=== PATIENT | female | born 1970 | race Caucasian/White ===

== ENCOUNTER 2016-04-10 23:45 | Emergency (ER) | payer OTHER ==
[2016-04-11 00:28] VITALS: BP 136/72
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
--- NOTE | 2016-04-11 04:03 | ER Document Report ---
ED General - General Chief Complaint: Allergic Reaction Stated Complaint: POSSIBLE ALLERGIC REACTION Time seen by provider: 04:00 Mode of Arrival: Ambulatory Information source: Patient Notes: 45-year-old female presents to ED for possible allergic reaction to Decadron she states she had a dose of Rocephin Pepcid and Decadron as [facility] around 2 PM yesterday afternoon and the day before states she told the doctor that she is allergic to Decadron and they stated that she needed to have it and noted that the Rocephin that she needs for the possible infection to her [place] pouch. She states she's had a splitting headache since she got the Decadron the first day and she told the doctor yesterday and they told her she still needed the medicine. She has an ostomy bag over top of the indwelling catheter went into [place] pouch. TRAVEL OUTSIDE OF THE [place] IN LAST 30 DAYS: No - HPI Onset: Other - 2 days Onset/Duration: Gradual, Worse Quality of pain: Sharp, Throbbing Severity: Moderate Pain Level: 3 Associated symptoms: Headache, Other - Lightheaded when she stands up Exacerbated by: Standing Relieved by: Denies Similar symptoms previously: Yes Recently seen / treated by doctor: Yes - Related Data Allergies/Adverse Reactions: amoxicillin [Amoxicillin] Allergy (Severe, Verified 04/11/16 00:29) Hives cephalexin monohydrate [From Keflex] Allergy (Severe, Verified 04/11/16 00:29) Hives ciprofloxacin [From Cipro] Allergy (Severe, Verified 04/11/16 00:29) Hives clarithromycin [From Biaxin] Allergy (Severe, Verified 04/11/16 00:29) Hives diphenhydramine HCl [From Benadryl] Allergy (Severe, Verified 04/11/16 00:29) Hives doxycycline [Doxycycline] Allergy (Severe, Verified 04/11/16 00:29) Hives gentamicin [Gentamicin] Allergy (Severe, Verified 04/11/16 00:29) Hives gluten [Gluten] Allergy (Severe, Verified 04/11/16 00:29) Diarrhea hydrocodone [Hydrocodone] Allergy (Severe, Verified 04/11/16 00:29) Hives ibuprofen Allergy (Severe, Verified 04/11/16 00:29) Hives iodine [Iodine] Allergy (Severe, Verified 04/11/16 00:29) Anaphylaxis latex [Latex] Allergy (Severe, Verified 04/11/16 00:29) Anaphylaxis levofloxacin [From Levaquin] Allergy (Severe, Verified 04/11/16 00:29) Hives meperidine HCl [From Demerol] Allergy (Severe, Verified 04/11/16 00:29) Hives methylprednisolone sodium succinate [From Solu-Medrol (PF)] Allergy (Severe, Verified 04/11/16 00:29) Hives morphine [Morphine] Allergy (Severe, Verified 04/11/16 00:29) Hives nitrofurantoin [From Macrobid] Allergy (Severe, Verified 04/11/16 00:29) Hives ondansetron HCl [From Zofran] Allergy (Severe, Verified 04/11/16 00:29) Anaphylaxis Opioids-Meperidine and Related [Opioids-Meperidine & Related] Allergy (Severe, Verified 04/11/16 00:29) Hives oxycodone [Oxycodone] Allergy (Severe, Verified 04/11/16 00:29) Hives promethazine HCl [From Phenergan] Allergy (Severe, Verified 04/11/16 00:29) paralysis Shellfish * [Shellfish] Allergy (Severe, Verified 04/11/16 00:29) Anaphylaxis Sulfa (Sulfonamide Antibiotics) Allergy (Severe, Verified 04/11/16 00:29) Anaphylaxis tetracycline [Tetracycline] Allergy (Severe, Verified 04/11/16 00:29) Hives vancomycin [Vancomycin] Allergy (Severe, Verified 04/11/16 00:29) Hives ampicillin [Ampicillin] Adverse Reaction (Severe, Verified 04/11/16 00:29) Hives hydromorphone HCl [From Dilaudid] Adverse Reaction (Severe, Verified 04/11/16 00 :29) Hallucinations Cats Allergy (Severe, Uncoded 01/29/16 14:11) Anaphylaxis Dogs Allergy (Severe, Uncoded 01/29/16 14:11) Hives Past Medical History - General Information source: Patient - Social History Smoking Status: Never Smoker Cigarette use (# per day): No Chew tobacco use (# tins/day): No Smoking Education Provided: No Frequency of alcohol use: None Drug Abuse: None Occupation: none Lives with: Alone Family History: CVA, Malignancy, Thyroid Disfunction Patient has suicidal ideation: No Patient has homicidal ideation: No - Medical History Medical History: Other - Celiac's disease, Marfan's syndrome, ITP short gut syndrome, vitamin B-12 deficiency, vitamin D deficiency, iron deficiency anemia , enlarged liver, enlarged spleen, chiari malformation type 2 - Past Medical History Cardiac Medical History: Reports: None Pulmonary Medical History: Reports: Hx Asthma, Hx Bronchitis, Hx Pneumonia EENT Medical History: Reports: None Neurological Medical History: Reports: None Endocrine Medical History: Reports: None Renal/ Medical History: Reports: Hx Kidney Stones, Hx Ovarian Cysts Malignancy Medical History: Reports: None GI Medical History: Reports: Hx Ulcer, Other - Multiple incisional hernias, around the stoma Musculoskeltal Medical History: Reports None Skin Medical History: Reports None Psychiatric Medical History: Reports: None Traumatic Medical History: Reports: None Infectious Medical History: Reports: None Past Surgical History: Reports: Hx Abdominal Surgery - Hernia repair, Abd reconstruction with mesh, Hx Appendectomy, Hx Cholecystectomy, Hx Genitourinary Surgery - Ureteral stent and repair, Hx Herniorrhaphy - Gen. hernia repairs with mesh, Hx Urinary Tract Surgery - Pabladder removal, [place] pouch, suprapubic catheter for her [place] pouch - Immunizations Immunizations up to date: Yes Hx Diphtheria, Pertussis, Tetanus Vaccination: Yes Hx Pneumococcal Vaccination: 10/29/14 Review of Systems - Review of Systems Constitutional: No symptoms reported EENT: No symptoms reported Cardiovascular: Other - Bradycardia Respiratory: No symptoms reported Gastrointestinal: No symptoms reported Genitourinary: No symptoms reported Female Genitourinary: No symptoms reported Musculoskeletal: No symptoms reported Skin: No symptoms reported Hematologic/Lymphatic: No symptoms reported Neurological/Psychological: Headaches -: Yes All other systems reviewed and negative Physical Exam - Vital signs Vitals: Temp Pulse Resp BP Pulse Ox 97.8 F 58 L 20 136/72 H 98 04/11/16 00:24 04/11/16 00:24 04/11/16 00:24 04/11/16 00:24 04/11/16 00:24 Interpretation: Normal - General General appearance: Appears well, Alert - HEENT Head: Normocephalic, Atraumatic Eyes: Normal Pupils: PERRL Ears: Normal External canal: Normal Tympanic membrane: Normal Sinus: Normal Nasal: Normal Mouth/Lips: Normal Mucous membranes: Normal Pharynx: Normal Neck: Normal - Respiratory Respiratory status: No respiratory distress Chest status: Nontender Breath sounds: Normal Chest palpation: Normal - Cardiovascular Rhythm: Regular Heart sounds: Normal auscultation Murmur: No - Abdominal Inspection: Normal Distension: No distension Bowel sounds: Normal Tenderness: Nontender Organomegaly: No organomegaly - Back Back: Normal, Nontender - Extremities General upper extremity: Normal inspection, Nontender, Normal color, Normal ROM , Normal temperature General lower extremity: Normal inspection, Nontender, Normal color, Normal ROM , Normal temperature, Normal weight bearing. 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 Denny earlier for this patient for her headache and low pulse. He requested a CT head and EKG be done which were completed and reviewed by Dr. Denny and I. reviewed these with the patient and when preparing to discharge the patient she stated she is breast get a nurse visit in a couple hours for Rocephin Pepcid and Decadron from Dr. Tadeo. She states she wanted to get this visit now instead of having to come back later this morning. I consulted Dr. Tadeo he stated yes she would like her to have a gram of Rocephin and 20 mg of Pepcid IV. She states she is not supposed to get Decadron today. Dr. Quiñones states she no she's allergic to the Rocephin but that she needs it for the infection in her abdomen to please give it to her. 1 g of IV Rocephin and 20 mg of Pepcid ordered as requested. - Vital Signs Vital signs: Temp Pulse Resp BP Pulse Ox 97.8 F 58 L 20 136/72 H 98 04/11/16 00:24 04/11/16 00:24 04/11/16 00:24 04/11/16 00:24 04/11/16 00:24 - Diagnostic Test Radiology reviewed: Image reviewed, Reports reviewed Discharge - Discharge Clinical Impression: Headache Qualifiers: Headache type: unspecified Headache chronicity pattern: unspecified pattern Intractability: not intractable Qualified Code(s): R51 - Headache Condition: Stable Disposition: HOME, SELF-CARE Additional Instructions: HEADACHE: The physician does not feel that the headache you are experiencing has a serious underlying cause. Most headaches are due to emotional stress, with resultant muscle tension (tension headache). Occasionally, headaches are secondary to changes in the blood vessels of the scalp (vascular headache and migraine headache). Sometimes, a headache is the first symptom of another developing illness, such as a viral infection. You have no evidence of stroke, bleeding, meningitis, or other serious cause of your headache. The treatment of headaches varies with the severity and cause of the pain. Not all headaches need pain shots. In fact, there is evidence that using narcotics for headaches may make them worse in the long run. The physician will determine the therapy that's in your best interest. If you develop a fever, if the headache is different from any you've previously experienced, or if the headache progressively worsens, then call your physician at once or go to the emergency room. Rocephin You have been given an injection of an antibiotic called Rocephin ( ceftriaxone). Sometimes the injection must be combined with antibiotic pills. For some infections, such as an uncomplicated ear infection, Rocephin provides all the antibiotic that's needed. The antibiotic will be in your body for about two days. For serious infections, we usually repeat doses of Rocephin daily. Side effects are very unusual following a shot. Women may develop vaginal yeast infections, and babies can get yeast (thrush) in the mouth following the use of antibiotics. Contact your physician if you have symptoms with this medication. Allergy to this antibiotic can result in hives, wheezing, faintness, or itching. If symptoms of allergy occur, call the doctor at once. Acid-Suppressing Medication You have a prescription for medicine which reduces the stomach's secretion of acid. Examples include Zantac, Tagament, and Pepcid. These drugs are often used to allow healing of ulcers or esophagitis. They may be needed to prevent recurrence of ulcers in some patients, or to prevent damage from acid reflux in the esophagus. Take all medication as prescribed, even after the pain is gone. Regular antacids may be added as needed if you have symptoms while taking this medicine. These medications sometimes are prescribed for allergic reactions because they have anti-histaminic effects and relieve the rash and itching of the reaction. There are usually no side effects from this medication. But, in rare cases and particularly in the elderly, serious problems can occur. Contact your doctor if there is fever, rash, hallucinations, confusion, or unusual bruising. Contact your doctor at once if you develop lightheadedness, black or bloody stool, or bloody vomitus. Your CT of the head was unchanged from 2011 and your EKG was unchanged from 2013. Please contact your doctor that is prescribing your Rocephin Pepcid and Decadron and be sure that she still when she took continued to have the Decadron if you haven't this bad of a headache. FOLLOW-UP CARE: If you have been referred to a physician for follow-up care, call the physician s office for an appointment as you were instructed or within the next two days. If you experience worsening or a significant change in your symptoms, notify the physician immediately or return to the Emergency Department at any time for re-evaluation. Forms: Elevated Blood Pressure Referrals: ESTEBAN PENA NP [Primary Care Provider] - Follow up as needed
[2016-04-11] MEDS ORDERED: FAMOTIDINE INJ/PF 20 MG/2 ML SDV IV ONE (06:00)
[2016-04-11] MEDS ORDERED: CEFTRIAXONE 1 GM/D5W RTU 50 ML IV ONE (06:00)
--- NOTE | 2016-04-11 10:40 | EKG REPORT ---
SEVERITY:- ABNORMAL ECG - SINUS BRADYCARDIA ABNORMAL T, CONSIDER ISCHEMIA, ANTERIOR LEADS : Confirmed by: Santosh Smart 11-Apr-2016 10:39:01
== END 2016-04-11 06:46 | disposition home or self-care (01) ==
LOC: ER 23:45
DX: R51 Headache (principal); R00.1 Bradycardia, unspecified; R42 Dizziness and giddiness; Q07.00 Arnold-Chiari syndrome without spina bifida or hydrocephalus; J45.909 Unspecified asthma, uncomplicated; Z88.0 Allergy status to penicillin; Z88.1 Allergy status to other antibiotic agents; Z88.5 Allergy status to narcotic agent; Z88.6 Allergy status to analgesic agent; Z87.892 Personal history of anaphylaxis; Z88.3 Allergy status to other anti-infective agents; Z91.040 Latex allergy status; Z88.8 Allergy status to other drugs, medicaments and biological substances; Z91.013 Allergy to seafood; Z91.048 Other nonmedicinal substance allergy status
CPT/HCPCS: 93005; 99284; 96375; 96365; 70450; 93010; S0028; J0696

== ENCOUNTER 2016-06-11 01:54 | Emergency (ER) | payer OTHER, MEDICARE ==
[2016-06-11] MEDS ORDERED: METOCLOPRAMIDE HCL INJ/PF 10 MG/2 ML SDV IV ONE (06:05)
[2016-06-11] MEDS ORDERED: NORMAL SALINE 1000 ML 1,000 ML IV ONE (06:06)
--- NOTE | 2016-06-11 06:58 | ER Document Report ---
ED General - General Chief Complaint: Nausea/Vomiting Stated Complaint: VOMITING Mode of Arrival: Ambulatory Information source: Patient Notes: 45-year-old female history of ITP who receives IVIG infusion presents with complaints of nausea vomiting since receiving the medication. Patient denies any fevers or chills, denies any diarrhea. Patient notes she has a history of kidney infection for which she is on linezolid TRAVEL OUTSIDE OF THE [place] IN LAST 30 DAYS: No - HPI Onset: Last week Onset/Duration: Persistent Quality of pain: Achy Severity: Mild Pain Level: 1 Associated symptoms: Nausea, Vomiting Exacerbated by: Denies Relieved by: Denies Similar symptoms previously: Yes Recently seen / treated by doctor: Yes - Related Data Allergies/Adverse Reactions: amoxicillin [Amoxicillin] Allergy (Severe, Verified 04/11/16 00:29) Hives cephalexin monohydrate [From Keflex] Allergy (Severe, Verified 04/11/16 00:29) Hives ciprofloxacin [From Cipro] Allergy (Severe, Verified 04/11/16 00:29) Hives clarithromycin [From Biaxin] Allergy (Severe, Verified 04/11/16 00:29) Hives diphenhydramine HCl [From Benadryl] Allergy (Severe, Verified 04/11/16 00:29) Hives doxycycline [Doxycycline] Allergy (Severe, Verified 04/11/16 00:29) Hives gentamicin [Gentamicin] Allergy (Severe, Verified 04/11/16 00:29) Hives gluten [Gluten] Allergy (Severe, Verified 04/11/16 00:29) Diarrhea hydrocodone [Hydrocodone] Allergy (Severe, Verified 04/11/16 00:29) Hives ibuprofen Allergy (Severe, Verified 04/11/16 00:29) Hives iodine [Iodine] Allergy (Severe, Verified 04/11/16 00:29) Anaphylaxis latex [Latex] Allergy (Severe, Verified 04/11/16 00:29) Anaphylaxis levofloxacin [From Levaquin] Allergy (Severe, Verified 04/11/16 00:29) Hives meperidine HCl [From Demerol] Allergy (Severe, Verified 04/11/16 00:29) Hives methylprednisolone sodium succinate [From Solu-Medrol (PF)] Allergy (Severe, Verified 04/11/16 00:29) Hives morphine [Morphine] Allergy (Severe, Verified 04/11/16 00:29) Hives nitrofurantoin [From Macrobid] Allergy (Severe, Verified 04/11/16 00:29) Hives ondansetron HCl [From Zofran] Allergy (Severe, Verified 04/11/16 00:29) Anaphylaxis Opioids-Meperidine and Related [Opioids-Meperidine & Related] Allergy (Severe, Verified 04/11/16 00:29) Hives oxycodone [Oxycodone] Allergy (Severe, Verified 04/11/16 00:29) Hives promethazine HCl [From Phenergan] Allergy (Severe, Verified 04/11/16 00:29) paralysis Shellfish * [Shellfish] Allergy (Severe, Verified 04/11/16 00:29) Anaphylaxis Sulfa (Sulfonamide Antibiotics) Allergy (Severe, Verified 04/11/16 00:29) Anaphylaxis tetracycline [Tetracycline] Allergy (Severe, Verified 04/11/16 00:29) Hives vancomycin [Vancomycin] Allergy (Severe, Verified 04/11/16 00:29) Hives ampicillin [Ampicillin] Adverse Reaction (Severe, Verified 04/11/16 00:29) Hives hydromorphone HCl [From Dilaudid] Adverse Reaction (Severe, Verified 04/11/16 00 :29) Hallucinations Cats Allergy (Severe, Uncoded 01/29/16 14:11) Anaphylaxis Dogs Allergy (Severe, Uncoded 01/29/16 14:11) Hives Past Medical History - Social History Smoking Status: Never Smoker Cigarette use (# per day): No Chew tobacco use (# tins/day): No Smoking Education Provided: No Family History: CVA, Malignancy, Thyroid Disfunction - Past Medical History Cardiac Medical History: Reports: Hx Hypercholesterolemia Denies: Hx Congestive Heart Failure, Hx Coronary Artery Disease, Hx Heart Attack, Hx Hypertension Pulmonary Medical History: Reports: Hx Asthma, Hx Bronchitis, Hx Pneumonia Denies: Hx COPD, Hx Tuberculosis Neurological Medical History: Denies: Hx Cerebrovascular Accident, Hx Seizures Renal/ Medical History: Reports: Hx Kidney Stones, Hx Ovarian Cysts. Denies: Hx End Stage Renal Disease, Hx Peritoneal Dialysis GI Medical History: Reports: Hx Hiatal Hernia, Hx Ulcer. Denies: Hx Cirrhosis, Hx Gastroesophageal Reflux Disease, Hx Hepatitis Musculoskeltal Medical History: Denies Hx Arthritis, Denies Hx Multiple Sclerosis Psychiatric Medical History: Reports: Hx Depression Denies: Hx Bipolar Disorder, Hx Schizophrenia Infectious Medical History: Denies: Hx Hepatitis Past Surgical History: Reports: Hx Abdominal Surgery - Hernia repair, Abd reconstruction with mesh, Hx Appendectomy, Hx Cholecystectomy, Hx Genitourinary Surgery - Ureteral stent and repair, Hx Herniorrhaphy - Gen. hernia repairs with mesh, Hx Urinary Tract Surgery - Pabladder removal, [place] pouch, suprapubic catheter for her [place] pouch. Denies: Hx Mastectomy, Hx Open Heart Surgery, Hx Pacemaker - Immunizations Immunizations up to date: Yes Hx Diphtheria, Pertussis, Tetanus Vaccination: Yes Hx Pneumococcal Vaccination: 10/29/14 Review of Systems - Review of Systems Notes: REVIEW OF SYSTEMS: CONSTITUTIONAL : Denies fever, chills, or sweats. Denies recent illness. EENT: Denies eye, ear, throat, or mouth pain or symptoms. Denies nasal or sinus congestion or discharge. Denies throat, tongue, or mouth swelling or difficulty swallowing. CARDIOVASCULAR: Denies chest pain. Denies palpitations or racing or irregular heart beat. Denies ankle edema. RESPIRATORY: Denies cough, cold, or chest congestion. Denies shortness of breath, difficulty breathing, or wheezing. GASTROINTESTINAL: Admits to flank pain nausea vomiting GENITOURINARY: Denies difficulty urinating, painful urination, burning, frequency, blood in urine, or discharge. FEMALE GENITOURINARY: Denies vaginal bleeding, heavy or abnormal periods, irregular periods. Denies vaginal discharge or odor. MUSCULOSKELETAL: Denies back or neck pain or stiffness. Denies joint pain or swelling. SKIN: Denies rash, lesions or sores. HEMATOLOGIC : Denies easy bruising or bleeding. LYMPHATIC: Denies swollen, enlarged glands. NEUROLOGICAL: Denies confusion or altered mental status. Denies passing out or loss of consciousness. Denies dizziness or lightheadedness. Denies headache. Denies weakness or paralysis or loss of use of either side. Denies problems with gait or speech. Denies sensory loss, numbness, or tingling. Denies seizures. PSYCHIATRIC: Denies anxiety or stress. Denies depression, suicidal ideation, or homicidal ideation. ALL OTHER SYSTEMS REVIEWED AND NEGATIVE. Dictation was performed using [employer] voice recognition software PHYSICAL EXAMINATION: GENERAL: Well-appearing, well-nourished and in no acute distress. HEAD: Atraumatic, normocephalic. EYES: Pupils equal round and reactive to light, extraocular movements intact, conjunctiva are normal. ENT: Nares patent, oropharynx clear without exudates. Moist mucous membranes. NECK: Normal range of motion, supple without lymphadenopathy LUNGS: Breath sounds clear to auscultation bilaterally and equal. No wheezes rales or rhonchi. HEART: Regular rate and rhythm without murmurs ABDOMEN: Soft, mildly tender left upper quadrant chronic, bilateral CVA tenderness healing stoma urostomy Female : deferred Musculoskeletal: Normal range of motion, no pitting or edema. No cyanosis. NEUROLOGICAL: Cranial nerves grossly intact. Normal speech, normal gait. Normal sensory, motor exams PSYCH: Normal mood, normal affect. SKIN: Warm, Dry, normal turgor, no rashes or lesions noted. Physical Exam - Vital signs Vitals: Temp Pulse Resp BP Pulse Ox 98.7 F 60 18 130/78 H 98 06/11/16 02:33 06/11/16 02:33 06/11/16 02:33 06/11/16 02:33 06/11/16 02:33 Course - Re-evaluation Re-evalutation: 06/11/16 06:58 Patient given IV fluids lab work pending, urinalysis pending. Otherwise patient looks quite well states she has not vomited since arrival 06/11/16 08:00 Unable to obtain an IV, 7 attempts were made. I will not stick this patient any further, lab work does not note any severe abnormality, urinalysis is consistent with infectious process but patient states she is only on the first week of her for a week and a biotics treatment. Therefore given that she is afebrile looks well I believe she is stable for discharge with the understanding that she return immediately if there are any other symptoms. Patient notes her nausea has resolved with Reglan After performing a Medical Screening Examination, I estimate there is LOW risk for ACUTE APPENDICITIS, BOWEL OBSTRUCTION, ACUTE CHOLECYSTITIS, PERFORATED DIVERTICULITIS, INCARCERATED HERNIA, PANCREATITIS, PELVIC INFLAMMATORY DISEASE, PERFORATED ULCER, ECTOPIC , or TUBO-OVARIAN ABSCESS, thus I consider the discharge disposition reasonable. Also, there is no evidence or peritonitis , sepsis, or toxicity. I have reevaluated this patient multiple times and no significant life threatening changes are noted. The patient and I have discussed the diagnosis and risks, and we agree with discharging home with close follow-up with the understanding that symptoms and presentations can change. We also discussed returning to the Emergency Department immediately if new or worsening symptoms occur. We have discussed the symptoms which are most concerning (e.g., bloody stool, fever, changing or worsening pain, vomiting) that necessitate immediate return. - Vital Signs Vital signs: Temp Pulse Resp BP Pulse Ox 98.7 F 60 18 130/78 H 98 06/11/16 02:33 06/11/16 02:33 06/11/16 02:33 06/11/16 02:33 06/11/16 02:33 - Laboratory Result Diagrams: 06/11/16 07:10 06/11/16 07:10 Laboratory results interpreted by me: 06/11/16 06/11/16 07:10 07:10 Total Bilirubin 1.6 H Urine Protein 30 H Urine Blood LARGE H Urine Nitrite POSITIVE H Ur Leukocyte Esterase LARGE H Urine Ascorbic Acid 20 H Discharge - Discharge Clinical Impression: UTI (urinary tract infection) Qualifiers: Urinary tract infection type: site unspecified Hematuria presence: with hematuria Qualified Code(s): N39.0 - Urinary tract infection, site not specified ; R31.9 - Hematuria, unspecified Nausea & vomiting Qualifiers: Vomiting type: unspecified Vomiting Intractability: non-intractable Qualified Code(s): R11.2 - Nausea with vomiting, unspecified Condition: Stable Disposition: HOME, SELF-CARE Instructions: Reglan ([facility]), Urinary Tract Infection ([facility]), Vomiting ([facility]) Additional Instructions: Follow up with your physician tomorrow for further care or return to the ED IMMEDIATELY if symptoms worsen or new concerns occur. If you cannot afford to follow up with your primary care physician a list of low cost clinics have been provided at the end of your discharge papers as well. Prescriptions: Metoclopramide HCl [Reglan 10 mg Tablet] 1 - 2 tab PO ASDIR PRN #25 tablet PRN Reason:
[2016-06-11] MEDS ORDERED: METOCLOPRAMIDE HCL 10 MG TABLET PO ONE (07:36)
[2016-06-11 07:46] LABS: ALANINE AMINOTRANSFERASE 30 U/L (9-52); ALKALINE PHOSPHATASE 89 U/L (38-126); ANION GAP 9 (5-19); ASPARTATE AMINO TRANSFERASE 30 U/L (14-36); BILIRUBIN,DIRECT 0.2 mg/dL (0.0-0.4); BILIRUBIN,TOTAL 1.6 mg/dL (0.2-1.3); BLOOD UREA NITROGEN 7 mg/dL (7-20); CALCIUM 9.2 mg/dL (8.4-10.2); CARBON DIOXIDE 22 mmol/L (22-30); CHLORIDE 107 mmol/L (98-107); CREATININE RESULT 0.56 mg/dL (0.52-1.25); GLUCOSE 90 mg/dL (75-110); POTASSIUM 4.2 mmol/L (3.6-5.0); SODIUM 138.3 mmol/L (137-145); TOTAL PROTEIN 8.2 g/dL (6.3-8.2)
[2016-06-11 07:49] LABS: APPEARANCE,URINE CLOUDY; BILIRUBIN,URINE NEGATIVE (NEGATIVE); GLUCOSE, URINE NEGATIVE (NEGATIVE); KETONES,URINE NEGATIVE (NEGATIVE); LEUKOCYTE ESTERASE,URINE LARGE (NEGATIVE); NITRITE,URINE POSITIVE (NEGATIVE); PROTEIN,URINE 30 mg/dL (NEGATIVE); URINE SPECIFIC GRAVITY 1.012; UROBILINOGEN,URINE NEGATIVE mg/dL (<2.0)
[2016-06-11 08:14] VITALS: BP 127/65
== END 2016-06-11 08:14 | disposition home or self-care (01) ==
LOC: ER 01:54
DX: N15.9 Renal tubulo-interstitial disease, unspecified (principal); R31.9 Hematuria, unspecified; R11.2 Nausea with vomiting, unspecified; R10.9 Unspecified abdominal pain; R10.812 Left upper quadrant abdominal tenderness; D69.3 Immune thrombocytopenic purpura; J45.909 Unspecified asthma, uncomplicated; Z98.890 Other specified postprocedural states; Z88.0 Allergy status to penicillin; Z88.1 Allergy status to other antibiotic agents; Z88.5 Allergy status to narcotic agent; Z88.6 Allergy status to analgesic agent; Z91.040 Latex allergy status; Z88.2 Allergy status to sulfonamides; Z87.892 Personal history of anaphylaxis; Z88.8 Allergy status to other drugs, medicaments and biological substances; Z91.013 Allergy to seafood; Z91.048 Other nonmedicinal substance allergy status
CPT/HCPCS: 36415; 80053; 81001; 87086; 87186; 99283

== ENCOUNTER → 2016-06-18 | Outpatient (CLI) | payer OTHER, MEDICARE ==
[~2016-06-18] MED LIST: ERTAPENEM SODIUM 1 GM in NORMAL SALINE 50 ML IV PRN; NORMAL SALINE 250 ML IV PRN
[2016-06-18 14:18] VITALS: BP 126/71
== END ==
LOC: II 14:00
PROVIDERS: ATTEND Specialist
DX: N39.0 Urinary tract infection, site not specified (principal)
CPT/HCPCS: 96365; 96360; J1335

== ENCOUNTER 2016-06-19 09:25 | Outpatient (CLI) | payer OTHER, MEDICARE ==
[~2016-06-19 09:25] MED LIST changes: -NORMAL SALINE 250 ML IV PRN
[2016-06-19 10:09] VITALS: BP 107/66
[2016-06-19] MEDS ORDERED: NORMAL SALINE 250 ML IV PRN (14:55)
== END 2016-06-19 10:09 | disposition home or self-care (01) ==
LOC: II 09:25 → 5TH 09:26 → II 10:09
PROVIDERS: ATTEND Specialist
DX: N39.0 Urinary tract infection, site not specified (principal)
CPT/HCPCS: 96365; J1335

== ENCOUNTER → 2016-08-31 | Outpatient (CLI) | payer OTHER, MEDICARE ==
[2016-08-31 17:33] LABS: HEMATOCRIT 38.6 % (36.0-47.0); HEMOGLOBIN 13.1 g/dL (12.0-15.5); HGB HCT DIFFERENCE 0.7; MEAN CORPUSCULAR HEMOGLOBIN 32.7 pg (27.0-33.4); MEAN CORPUSCULAR VOLUME 96 fl (80-97); RED BLOOD COUNT 4.01 10^6/uL (3.72-5.28); WHITE BLOOD COUNT 4.4 10^3/uL (4.0-10.5)
[2016-08-31 17:46] LABS: ALANINE AMINOTRANSFERASE 30 U/L (9-52); ALBUMIN 3.9 g/dL (3.5-5.0); ALKALINE PHOSPHATASE 78 U/L (38-126); ANION GAP 10 (5-19); ASPARTATE AMINO TRANSFERASE 25 U/L (14-36); BILIRUBIN,DIRECT 0.3 mg/dL (0.0-0.4); BILIRUBIN,TOTAL 0.8 mg/dL (0.2-1.3); BLOOD UREA NITROGEN 13 mg/dL (7-20); CALCIUM 9.2 mg/dL (8.4-10.2); CARBON DIOXIDE 22 mmol/L (22-30); CHLORIDE 109 mmol/L (98-107); CREATININE RESULT 0.67 mg/dL (0.52-1.25); GLUCOSE 86 mg/dL (75-110); POTASSIUM 4.2 mmol/L (3.6-5.0); SODIUM 140.8 mmol/L (137-145); TOTAL PROTEIN 7.2 g/dL (6.3-8.2)
== END ==
LOC: OD 16:45
PROVIDERS: ATTEND Obstetrics & Gynecology
DX: R19.7 Diarrhea, unspecified (principal); D69.6 Thrombocytopenia, unspecified
CPT/HCPCS: 36415; 80053; 85027; 87045; 87177; 87205; 87493

== ENCOUNTER 2016-09-02 08:41 | Day surgery (SDC) | payer OTHER, MEDICARE ==
[2016-09-02 09:34] LABS: WHITE BLOOD COUNT 3.9 10^3/uL (4.0-10.5)
[2016-09-02 09:45] LABS: PROTHROMBIN TIME 14.9 SEC (11.4-15.4)
[2016-09-02 09:46] LABS: PARTIAL THROMBOPLASTIN TIME 34.1 SEC (23.5-35.8)
[2016-09-02 09:50] LABS: BLOOD UREA NITROGEN 12 mg/dL (7-20); CREATININE RESULT 0.63 mg/dL (0.52-1.25)
[2016-09-02 10:01] LABS: HEMOGLOBIN 12.8 g/dL (12.0-15.5); HGB HCT DIFFERENCE 0.4; MEAN CORPUSCULAR HEMOGLOBIN 32.1 pg (27.0-33.4); MEAN CORPUSCULAR HGB CONC 33.7 g/dL (32.0-36.0); MEAN CORPUSCULAR VOLUME 95 fl (80-97); RED BLOOD COUNT 3.99 10^6/uL (3.72-5.28)
[2016-09-02] MEDS ORDERED: MIDAZOLAM 2 MG/2 ML INJ ONE (10:56)
[2016-09-02] MEDS ORDERED: FENTANYL CITRATE INJ/PF 100 MCG/2 ML AMPUL ONE ×2 (10:56→11:47)
--- NOTE | 2016-09-02 12:29 | RADIOLOGY REPORT (SQ) ---
EXAM DESCRIPTION: CT BIOPSY BONE DEEP; CT NEEDLE PLACEMENT COMPLETED DATE/TIME: 09/02/2016 12:01 pm REASON FOR STUDY: IRON DEFECIENCY ANEMIA; IRON DEFECIENCY ANEMIA BONE BIOPSY D69.3 IMMUNE THROMBOCY TOPENIC PURPURA D50.9 IRON DEFICIENCY ANEMIA, UNSPECIFIED COMPARISON: PET-CT 04/22/2014 Renal cortical biopsy 08/01/2014 CT abdomen pelvis 08/20/2014, 01/29/2016 TECHNIQUE: CT guided biopsy of the bone marrow performed with conscious sedation. CT Fluoroscopy Time: 5.[address] scanners at this facility use dose modulation, iterative reconstruction, and/or weight based d osing when appropriate to reduce radiation dose to as low as reasonably achievable (ALARA). [facility]: Dose Right [facility]: CareDose [facility]: Dose Right [facility]: Teradose 4D [facility]: [employer] RADIATION DOSE: mGy. FINDINGS: The procedure was discussed with the patient and the patient agreed to the procedure. Prio r to the procedure, a time out was performed to verify the patient's identity and planned procedure. IV sedation was administered and physician direction by the registered nurse using 2 milligrams of Ve rsed and 150 micrograms of fentanyl. Physiologic monitoring was provided before, during, and after se dation. The total sedation time was 35 minutes. Documentation face to face time, the performing proceduralist, spent monitoring the patient: [address] scanning was performed to localize the percutaneous site for the biopsy approach. After sterile skin prep and local lidocaine for skin and deep tissue anesthesia, a 14 gauge bone biop sy needle was used to obtain an aspirate of marrow, which was received by the oncology nurse for proc essing and outside interpretation. At this point, a core of bone tissue was submitted to the oncolo gy nurse in formalin. There were no immediate complications. Pathology is pending at the time of dictation. IMPRESSION: CT GUIDED BIOPSY OF THE right posterior iliac crest bone marrow PERFORMED WITHOUT IMMEDI ATE COMPLICATION. PATHOLOGY PENDING. IV conscious sedation COMMENT: Quality ID [id number]: Final reports for procedures using fluoroscopy that document radiation exp osure indices, or exposure time and number of fluorographic images (if radiation exposure indices are not available) Patient medication list reviewed: Yes- Quality ID# [id number]:Eligible professional attests to documenting i n the medical record they obtained, updated, or reviewed the patient's current medications.. TECHNICAL DOCUMENTATION: JOB ID: [id number] Quality ID# [id number]: Final reports with documentation of one or more dose reduction techniques (e.g., Aut omated exposure control, adjustment of the mA and/or kV according to patient size, use of iterative r econstruction technique) 2010 [employer]- All Rights Reserved
[2016-09-02 13:34] VITALS: BP 124/65
== END 2016-09-02 13:30 | disposition home or self-care (01) ==
LOC: RAD 08:41
PROVIDERS: ATTEND Specialist
PROC: 0QB23ZX Excision of Right Pelvic Bone, Percutaneous Approach, Diagnostic (ICD-10-PCS; principal; 2016-09-02)
DX: D69.3 Immune thrombocytopenic purpura (principal); D50.9 Iron deficiency anemia, unspecified; K74.60 Unspecified cirrhosis of liver; K76.0 Fatty (change of) liver, not elsewhere classified; Z87.440 Personal history of urinary (tract) infections; Q07.00 Arnold-Chiari syndrome without spina bifida or hydrocephalus; Z79.899 Other long term (current) drug therapy; Z88.0 Allergy status to penicillin; Z88.5 Allergy status to narcotic agent; Z88.2 Allergy status to sulfonamides; Q87.40 Marfan syndrome, unspecified
CPT/HCPCS: 36415; 84520; 82565; 85027; 85610; 85730; 77012; 20225; J2250; J3010

== ENCOUNTER 2016-11-12 12:48 | Emergency (ER) | payer OTHER, MEDICARE ==
--- NOTE | 2016-11-12 13:00 | ER Document Report ---
ED General - General Mode of Arrival: Ambulatory Information source: Patient TRAVEL OUTSIDE OF THE [place] IN LAST 30 DAYS: No <ANISHA YARBROUGH - Last Filed: 11/12/16 15:25> <IGNACIO ZARATE - Last Filed: 11/12/16 16:17> - General Stated Complaint: ARM NUMBNESS,ABDOMINAL PAIN Time Seen by Provider: 11/12/16 13:00 Notes: Patient is a 46-year-old female that presents to the emergency department today after having a bizarre reaction to nitrous oxide at a dentist office. Patient states she has had nitrous oxide several times in the past with no adverse reactions. Patient complains of generalized numbness in the arms, legs, and torso which she states "comes and goes". Patient describes her symptoms as "feeling like I am coming out of sedation". Patient has quite an extensive past medical history as recorded. (ANISHA YARBROUGH) - HPI Notes: Ammonia level is pending as apparently missed on initial draw. It is being drawn currently. She is overall improved but still has some generalized weakness. (IGNACIO ZARATE) - Related Data Allergies/Adverse Reactions: acetaminophen [From Vicodin] Allergy (Severe, Verified 09/02/16 09:32) Hives cephalexin monohydrate [From Keflex] Allergy (Severe, Verified 04/11/16 00:29) Hives ciprofloxacin [From Cipro] Allergy (Severe, Verified 04/11/16 00:29) Hives clarithromycin [From Biaxin] Allergy (Severe, Verified 04/11/16 00:29) Hives diphenhydramine [From Benadryl] Allergy (Severe, Verified 09/02/16 09:32) Hives diphenhydramine HCl [From Benadryl] Allergy (Severe, Verified 04/11/16 00:29) Hives doxycycline [Doxycycline] Allergy (Severe, Verified 04/11/16 00:29) Hives gentamicin [Gentamicin] Allergy (Severe, Verified 04/11/16 00:29) Hives gluten [Gluten] Allergy (Severe, Verified 04/11/16 00:29) Diarrhea hydrocodone [Hydrocodone] Allergy (Severe, Verified 04/11/16 00:29) Hives ibuprofen Allergy (Severe, Verified 04/11/16 00:29) Hives iodine [Iodine] Allergy (Severe, Verified 04/11/16 00:29) Anaphylaxis latex [Latex] Allergy (Severe, Verified 04/11/16 00:29) Anaphylaxis levofloxacin [From Levaquin] Allergy (Severe, Verified 04/11/16 00:29) Hives meperidine HCl [From Demerol] Allergy (Severe, Verified 04/11/16 00:29) Hives methylprednisolone sodium succinate [From Solu-Medrol (PF)] Allergy (Severe, Verified 04/11/16 00:29) Hives morphine [Morphine] Allergy (Severe, Verified 04/11/16 00:29) Hives nitrofurantoin [From Macrobid] Allergy (Severe, Verified 04/11/16 00:29) Hives ondansetron HCl [From Zofran] Allergy (Severe, Verified 04/11/16 00:29) Anaphylaxis Opioids-Meperidine and Related [Opioids-Meperidine & Related] Allergy (Severe, Verified 04/11/16 00:29) Hives oxycodone [Oxycodone] Allergy (Severe, Verified 04/11/16 00:29) Hives promethazine HCl [From Phenergan] Allergy (Severe, Verified 04/11/16 00:29) paralysis Shellfish * [Shellfish] Allergy (Severe, Verified 04/11/16 00:29) Anaphylaxis Sulfa (Sulfonamide Antibiotics) Allergy (Severe, Verified 04/11/16 00:29) Anaphylaxis tetracycline [Tetracycline] Allergy (Severe, Verified 04/11/16 00:29) Hives vancomycin [Vancomycin] Allergy (Severe, Verified 04/11/16 00:29) Hives hydromorphone HCl [From Dilaudid] Adverse Reaction (Severe, Verified 04/11/16 00 :29) Hallucinations Cats Allergy (Severe, Uncoded 01/29/16 14:11) Anaphylaxis Dogs Allergy (Severe, Uncoded 01/29/16 14:11) Hives Past Medical History - General Information source: Patient - Social History Smoking Status: Never Smoker Cigarette use (# per day): No Frequency of alcohol use: None Drug Abuse: None Lives with: Family Family History: Reviewed & Not Pertinent, CVA, Malignancy, Thyroid Disfunction - Past Medical History Cardiac Medical History: Reports: Hx Hypercholesterolemia Pulmonary Medical History: Reports: Hx Asthma, Hx Pneumonia Renal/ Medical History: Reports: Hx Kidney Stones, Hx Ovarian Cysts GI Medical History: Reports: Hx Hiatal Hernia, Hx Ulcer Psychiatric Medical History: Reports: Hx Depression Past Surgical History: Reports: Hx Abdominal Surgery - Hernia repair, Abd reconstruction with mesh, Hx Appendectomy, Hx Cholecystectomy, Hx Genitourinary Surgery - Ureteral stent and repair, Hx Herniorrhaphy - Gen. hernia repairs with mesh, Hx Urinary Tract Surgery - Pabladder removal, [place] pouch, suprapubic catheter for her [place] pouch - Immunizations Immunizations up to date: Yes Hx Diphtheria, Pertussis, Tetanus Vaccination: Yes Hx Pneumococcal Vaccination: 10/29/14 <ANISHA YARBROUGH - Last Filed: 11/12/16 15:25> Review of Systems - Review of Systems Constitutional: No symptoms reported EENT: No symptoms reported Cardiovascular: No symptoms reported Respiratory: No symptoms reported Gastrointestinal: No symptoms reported Genitourinary: No symptoms reported Female Genitourinary: No symptoms reported Musculoskeletal: No symptoms reported Skin: No symptoms reported Hematologic/Lymphatic: No symptoms reported Neurological/Psychological: See HPI, Numbness - generalized, comes and goes -: Yes All other systems reviewed and negative <ANISHA YARBROUGH - Last Filed: 11/12/16 15:25> Physical Exam - Vital signs Interpretation: Normal - General General appearance: Appears well, Alert - HEENT Head: Normocephalic, Atraumatic Eyes: Normal Pupils: PERRL - Respiratory Respiratory status: No respiratory distress Chest status: Nontender Breath sounds: Normal Chest palpation: Normal - Cardiovascular Rhythm: Regular Heart sounds: Normal auscultation Murmur: No - Abdominal Inspection: Normal Distension: No distension Bowel sounds: Normal Tenderness: Nontender Organomegaly: No organomegaly - Back Back: Normal, Nontender - Extremities General upper extremity: Normal inspection, Normal ROM. No: Edema General lower extremity: Normal inspection, Normal ROM. No: Edema - Neurological Neuro grossly intact: Yes Cognition: Normal Orientation: AAOx4 [place] Coma Scale Eye Opening: Spontaneous [place] Coma Scale Verbal: Oriented [place] Coma Scale Motor: Obeys Commands [place] Coma Scale Total: 15 Speech: Normal Cranial nerves: Normal Cerebellar coordination: Normal Additional motor exam normals: Equal heel varnisher. No: Pronator drift Sensory: Normal - Psychological Associated symptoms: Normal affect, Normal mood - Skin Skin Temperature: Warm Skin Moisture: Dry Skin Color: Normal <LINNEAANISHA - Last Filed: 11/12/16 15:25> <IGNACIO ZARATE - Last Filed: 11/12/16 16:17> - Vital signs Vitals: Resp Pulse Ox 10 L 95 11/12/16 13:10 11/12/16 13:10 - Neurological Notes: Generalized weakness, no focal neurological deficits. (ANISHA YARBROUGH) Course - Laboratory Result Diagrams: 11/12/16 13:21 11/12/16 13:21 <LINNEAANISHA - Last Filed: 11/12/16 15:25> - Laboratory Result Diagrams: 11/12/16 13:21 11/12/16 13:21 - EKG Interpretation by Me Rate: Bradycardia - Sinus bradycardia, 57, no clear ischemia. QRS normal duration. <ELLIOTIGNACIO Perales - Last Filed: 11/12/16 16:17> - Re-evaluation Re-evalutation: 11/12/16 16:15 Reviewed findings with the patient. No obvious cause but she is obviously sensitive to medications by looking at her scrolling allergy list. Her generalized weakness and paresthesias have almost resolved. She does have just some mild weakness left and is comfortable with discharge home. She has no focal abnormalities on her neurologic exam. She understands warning signs to watch for. (IGNACIO ZARATE) - Vital Signs Vital signs: Temp Pulse Resp BP Pulse Ox 19 116/71 97 11/12/16 16:01 11/12/16 16:01 11/12/16 16:01 - Laboratory Laboratory results interpreted by me: 11/12/16 11/12/16 13:21 13:21 [facility] 33.7 H Plt Count 79 L Chloride 109 H Total Bilirubin 1.6 H Direct Bilirubin 0.6 H AST 40 H Discharge <LINNEAANISHA - Last Filed: 11/12/16 15:25> <IGNACIO ZARATE - Last Filed: 11/12/16 16:17> - Discharge Clinical Impression: Generalized weakness, Paresthesia Condition: Good Disposition: HOME, SELF-CARE Additional Instructions: Return for any problem or concern, development of fever, worsening otherwise. Contact your physician to arrange follow-up. Referrals: DAV PENA MD [Primary Care Provider] - Follow up in 3-5 days Scribe Documentation - Scribe Written by Scribe:: Thelma Rodriguez, 11/12/2016 1522 acting as scribe for :: Shahrzad <ANISHA YARBROUGH - Last Filed: 11/12/16 15:25>
[2016-11-12 13:51] LABS: ABSOLUTE EOSINOPHILS # (AUTO) 0.2 10^3/uL (0.0-0.6); ABSOLUTE LYMPHOCYTES (AUTO) 0.7 10^3/uL (0.5-4.7); ABSOLUTE MONOCYTES (AUTO) 0.5 10^3/uL (0.1-1.4); BASOPHILS % (AUTO) 0.8 % (0-2); EOSINOPHILS % (AUTO) 4.4 % (0-6); HEMOGLOBIN 13.1 g/dL (12.0-15.5); HGB HCT DIFFERENCE 2.3; LYMPHOCYTES % (AUTO) 16.7 % (13-45); MEAN CORPUSCULAR HEMOGLOBIN 33.7 pg (27.0-33.4); MEAN CORPUSCULAR HGB CONC 35.5 g/dL (32.0-36.0); MEAN CORPUSCULAR VOLUME 95 fl (80-97); MONOCYTES % (AUTO) 11.5 % (3-13); RED BLOOD COUNT 3.89 10^6/uL (3.72-5.28); RED CELL DISTRIBUTION WIDTH 13.5 % (11.5-14.0); SEGMENTED NEUTROPHILS % (AUTO) 66.6 % (42-78); WHITE BLOOD COUNT 4.4 10^3/uL (4.0-10.5)
[2016-11-12 13:55] LABS: PROTHROMBIN TIME 14.5 SEC (11.4-15.4)
--- NOTE | 2016-11-12 13:57 | RADIOLOGY REPORT (SQ) ---
EXAM DESCRIPTION: CHEST SINGLE VIEW COMPLETED DATE/TIME: 11/12/2016 1:18 pm REASON FOR STUDY: Weakness COMPARISON: 01/22/2015 EXAM PARAMETERS: NUMBER OF VIEWS: One view. TECHNIQUE: Single frontal radiographic view of the chest acquired. RADIATION DOSE: NA LIMITATIONS: None. FINDINGS: LUNGS AND PLEURA: No opacities, masses or pneumothorax. No pleural effusion. MEDIASTINUM AND HILAR STRUCTURES: No masses. Contour normal. HEART AND VASCULAR STRUCTURES: Heart normal in size. Normal vasculature. BONES: No acute findings. HARDWARE: None in the chest. OTHER: No other significant finding. IMPRESSION: NO ACUTE RADIOGRAPHIC FINDING IN THE CHEST. TECHNICAL DOCUMENTATION: JOB ID: [id number]
[2016-11-12 14:23] LABS: ALANINE AMINOTRANSFERASE 28 U/L (9-52); ALKALINE PHOSPHATASE 91 U/L (38-126); ANION GAP 9 (5-19); ASPARTATE AMINO TRANSFERASE 40 U/L (14-36); BILIRUBIN,DIRECT 0.6 mg/dL (0.0-0.4); BILIRUBIN,TOTAL 1.6 mg/dL (0.2-1.3); BLOOD UREA NITROGEN 10 mg/dL (7-20); CALCIUM 9.4 mg/dL (8.4-10.2); CARBON DIOXIDE 23 mmol/L (22-30); CHLORIDE 109 mmol/L (98-107); CREATININE RESULT 0.66 mg/dL (0.52-1.25); GLUCOSE 89 mg/dL (75-110); POTASSIUM 4.5 mmol/L (3.6-5.0); SODIUM 141.4 mmol/L (137-145); TOTAL PROTEIN 7.3 g/dL (6.3-8.2)
--- NOTE | 2016-11-12 14:46 | RADIOLOGY REPORT (SQ) ---
EXAM DESCRIPTION: CT HEAD WITHOUT COMPLETED DATE/TIME: 11/12/2016 2:32 pm REASON FOR STUDY: HALL COMPARISON: 04/11/2016 TECHNIQUE: Axial images acquired through the brain without intravenous contrast. Images reviewed wi th bone, brain and subdural windows. Images stored on PACS. All CT scanners at this facility use dose modulation, iterative reconstruction, and/or weight based d osing when appropriate to reduce radiation dose to as low as reasonably achievable (ALARA). [facility]: Dose Right [facility]: CareDose [facility]: Dose Right [facility]: Teradose 4D [facility]: [employer] RADIATION DOSE: Up-to-date CT equipment and radiation dose reduction techniques were employed. CTDIv ol: 64.6 mGy. DLP: 1163 mGy-cm. mGy. LIMITATIONS: None. FINDINGS: VENTRICLES: Normal size and contour. CEREBRUM: No masses. No hemorrhage. No midline shift. No evidence for acute infarction. Normal gra y/white matter differentiation. No areas of low density in the white matter. CEREBELLUM: No masses. No hemorrhage. No alteration of density. No evidence for acute infarction. EXTRAAXIAL SPACES: No fluid collections. No masses. ORBITS AND GLOBE: No intra- or extraconal masses. Normal contour of globe without masses. CALVARIUM: No fracture. PARANASAL SINUSES: No fluid or mucosal thickening. SOFT TISSUES: No mass or hematoma. OTHER: No other significant finding. IMPRESSION: NORMAL BRAIN CT WITHOUT CONTRAST. EVIDENCE OF ACUTE STROKE: NO. COMMENT: Quality ID # [id number]: Final reports with documentation of one or more dose reduction techniques (e.g., Automated exposure control, adjustment of the mA and/or kV according to patient size, use of iterative reconstruction technique) TECHNICAL DOCUMENTATION: JOB ID: [id number]- All Rights Reserved
[2016-11-12 16:10] VITALS: BP 116/71
--- NOTE | 2016-11-12 18:33 | EKG REPORT ---
SEVERITY:- BORDERLINE ECG - SINUS RHYTHM BORDERLINE T ABNORMALITIES, ANTERIOR LEADS : Confirmed by: Faheem Cisneros MD 12-Nov-2016 18:33:06
== END 2016-11-12 16:50 | disposition home or self-care (01) ==
LOC: ER 12:48
DX: R20.0 Anesthesia of skin (principal); R53.1 Weakness; R00.1 Bradycardia, unspecified; J45.909 Unspecified asthma, uncomplicated; Z88.1 Allergy status to other antibiotic agents; Z88.6 Allergy status to analgesic agent; Z88.8 Allergy status to other drugs, medicaments and biological substances; Z91.048 Other nonmedicinal substance allergy status; Z88.5 Allergy status to narcotic agent; Z91.013 Allergy to seafood; Z91.040 Latex allergy status; Z87.892 Personal history of anaphylaxis; Z88.2 Allergy status to sulfonamides
CPT/HCPCS: 36415; 70450; 71010; 80053; 82140; 84484; 85025; 85610; 93005; 93010; 99285

== ENCOUNTER → 2016-11-19 | Outpatient (CLI) | payer OTHER, MEDICARE | LOC: OD 16:41 | PROVIDERS: ATTEND Obstetrics & Gynecology | DX: Z01.84 Encounter for antibody response examination (principal) | CPT/HCPCS: 36415; 86317 ==

== ENCOUNTER → 2017-03-12 | Outpatient (CLI) | payer OTHER, MEDICARE ==
[2017-03-12 14:01] LABS: ABSOLUTE EOSINOPHILS # (AUTO) 0.3 10^3/uL (0.0-0.6); ABSOLUTE MONOCYTES (AUTO) 0.7 10^3/uL (0.1-1.4); ABSOLUTE NEUT (AUTO) 3.1 10^3/uL (1.7-8.2); BASOPHILS % (AUTO) 0.8 % (0-2); EOSINOPHILS % (AUTO) 6.1 % (0-6); HEMATOCRIT 37.1 % (36.0-47.0); HEMOGLOBIN 12.8 g/dL (12.0-15.5); LYMPHOCYTES % (AUTO) 18.7 % (13-45); MEAN CORPUSCULAR HEMOGLOBIN 32.7 pg (27.0-33.4); MEAN CORPUSCULAR HGB CONC 34.6 g/dL (32.0-36.0); MEAN CORPUSCULAR VOLUME 94 fl (80-97); MONOCYTES % (AUTO) 14.2 % (3-13); RED BLOOD COUNT 3.93 10^6/uL (3.72-5.28); SEGMENTED NEUTROPHILS % (AUTO) 60.2 % (42-78); TOTAL CELLS COUNTED % (AUTO) 100 %; WHITE BLOOD COUNT 5.2 10^3/uL (4.0-10.5)
[2017-03-12 14:18] LABS: PLATELET COUNT 83 10^3/uL (150-450)
[2017-03-12 14:24] LABS: ALANINE AMINOTRANSFERASE 25 U/L (9-52); ALBUMIN 3.9 g/dL (3.5-5.0); ALKALINE PHOSPHATASE 77 U/L (38-126); ANION GAP 8 (5-19); ASPARTATE AMINO TRANSFERASE 21 U/L (14-36); BILIRUBIN,DIRECT 0.2 mg/dL (0.0-0.4); BILIRUBIN,TOTAL 0.8 mg/dL (0.2-1.3); BLOOD UREA NITROGEN 9 mg/dL (7-20); CALCIUM 9.1 mg/dL (8.4-10.2); CARBON DIOXIDE 26 mmol/L (22-30); CHLORIDE 108 mmol/L (98-107); GLUCOSE 71 mg/dL (75-110); POTASSIUM 4.4 mmol/L (3.6-5.0); SODIUM 141.5 mmol/L (137-145); TOTAL PROTEIN 7.1 g/dL (6.3-8.2)
[2017-03-14 05:59] LABS: EPSTEIN BARR EARLY AG IGG AB <9.0 U/mL (0.0-8.9); EPSTEIN BARR VCA IGG AB >600.0 U/mL (0.0-17.9); EPSTEIN BARR VCA IGM AB <36.0 U/mL (0.0-35.9)
== END ==
LOC: OD 13:02
PROVIDERS: ATTEND Obstetrics & Gynecology
DX: R53.83 Other fatigue (principal); D69.6 Thrombocytopenia, unspecified; Q87.40 Marfan syndrome, unspecified; Z51.81 Encounter for therapeutic drug level monitoring; Z79.899 Other long term (current) drug therapy
CPT/HCPCS: 36415; 80053; 84443; 85025; 86256; 86663; 86664; 86665

== ENCOUNTER → 2017-04-15 | Outpatient (CLI) | payer OTHER, MEDICARE ==
[2017-04-15 18:41] LABS: ABSOLUTE EOSINOPHILS # (AUTO) 0.4 10^3/uL (0.0-0.6); ABSOLUTE LYMPHOCYTES (AUTO) 1.2 10^3/uL (0.5-4.7); ABSOLUTE MONOCYTES (AUTO) 0.7 10^3/uL (0.1-1.4); ABSOLUTE NEUT (AUTO) 2.9 10^3/uL (1.7-8.2); BASOPHILS % (AUTO) 0.9 % (0-2); EOSINOPHILS % (AUTO) 6.8 % (0-6); HEMATOCRIT 40.3 % (36.0-47.0); HEMOGLOBIN 14.2 g/dL (12.0-15.5); LYMPHOCYTES % (AUTO) 22.3 % (13-45); MEAN CORPUSCULAR HEMOGLOBIN 32.9 pg (27.0-33.4); MEAN CORPUSCULAR HGB CONC 35.3 g/dL (32.0-36.0); MEAN CORPUSCULAR VOLUME 93 fl (80-97); RED BLOOD COUNT 4.31 10^6/uL (3.72-5.28); RED CELL DISTRIBUTION WIDTH 13.5 % (11.5-14.0); TOTAL CELLS COUNTED % (AUTO) 100 %; WHITE BLOOD COUNT 5.2 10^3/uL (4.0-10.5)
[2017-04-15 18:52] LABS: ALANINE AMINOTRANSFERASE 27 U/L (9-52); ALBUMIN 4.4 g/dL (3.5-5.0); ALKALINE PHOSPHATASE 94 U/L (38-126); ANION GAP 11 (5-19); ASPARTATE AMINO TRANSFERASE 28 U/L (14-36); BILIRUBIN,DIRECT 0.4 mg/dL (0.0-0.4); BILIRUBIN,TOTAL 0.9 mg/dL (0.2-1.3); BLOOD UREA NITROGEN 11 mg/dL (7-20); CALCIUM 9.5 mg/dL (8.4-10.2); CARBON DIOXIDE 23 mmol/L (22-30); CHLORIDE 110 mmol/L (98-107); GLUCOSE 80 mg/dL (75-110); POTASSIUM 4.1 mmol/L (3.6-5.0); TOTAL PROTEIN 8.2 g/dL (6.3-8.2)
[2017-04-15 19:01] LABS: PLATELET COUNT 82 10^3/uL (150-450)
== END ==
LOC: OD 17:09
PROVIDERS: ATTEND Obstetrics & Gynecology
DX: N39.0 Urinary tract infection, site not specified (principal); L03.311 Cellulitis of abdominal wall
CPT/HCPCS: 36415; 80053; 85025; 87086; 87088; 87186

== ENCOUNTER → 2017-04-23 | Outpatient (CLI) | payer OTHER, MEDICARE ==
[2017-04-23 12:34] LABS: APPEARANCE,URINE CLOUDY; BILIRUBIN,URINE NEGATIVE (NEGATIVE); GLUCOSE, URINE NEGATIVE (NEGATIVE); KETONES,URINE NEGATIVE (NEGATIVE); LEUKOCYTE ESTERASE,URINE MODERATE (NEGATIVE); NITRITE,URINE POSITIVE (NEGATIVE); PROTEIN,URINE 100 mg/dL (NEGATIVE); URINE SPECIFIC GRAVITY 1.012; UROBILINOGEN,URINE NEGATIVE mg/dL (<2.0)
[2017-04-23 12:36] LABS: COLOR,URINE BROWN
[2017-04-23 12:48] LABS: HEMATOCRIT 37.7 % (36.0-47.0); HEMOGLOBIN 13.2 g/dL (12.0-15.5); MEAN CORPUSCULAR HEMOGLOBIN 32.7 pg (27.0-33.4); MEAN CORPUSCULAR HGB CONC 34.9 g/dL (32.0-36.0); MEAN CORPUSCULAR VOLUME 94 fl (80-97); RED BLOOD COUNT 4.02 10^6/uL (3.72-5.28); RED CELL DISTRIBUTION WIDTH 13.4 % (11.5-14.0); WHITE BLOOD COUNT 4.2 10^3/uL (4.0-10.5)
[2017-04-23 13:14] LABS: ALANINE AMINOTRANSFERASE 36 U/L (9-52); ALBUMIN 4.2 g/dL (3.5-5.0); ALKALINE PHOSPHATASE 84 U/L (38-126); ANION GAP 10 (5-19); ASPARTATE AMINO TRANSFERASE 33 U/L (14-36); BILIRUBIN,DIRECT 0.5 mg/dL (0.0-0.4); BILIRUBIN,TOTAL 1.5 mg/dL (0.2-1.3); BLOOD UREA NITROGEN 11 mg/dL (7-20); CALCIUM 9.3 mg/dL (8.4-10.2); CARBON DIOXIDE 21 mmol/L (22-30); CHLORIDE 111 mmol/L (98-107); GLUCOSE 79 mg/dL (75-110); SODIUM 141.8 mmol/L (137-145); TOTAL PROTEIN 7.9 g/dL (6.3-8.2)
[2017-04-23 13:31] LABS: PLATELET COUNT 76 10^3/uL (150-450)
== END ==
LOC: OD 11:17
PROVIDERS: ATTEND Obstetrics & Gynecology
DX: Q87.40 Marfan syndrome, unspecified (principal); R31.9 Hematuria, unspecified
CPT/HCPCS: 36415; 80053; 81001; 85027

== ENCOUNTER 2017-04-28 16:37 | Emergency (ER) | payer OTHER, MEDICARE ==
--- NOTE | 2017-04-28 17:20 | ER Document Report ---
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 She also states she has significant multiple other medical problems. 1 of which is frequent kidney stones. She states she has passed 50 this year already. She states she recently had a CAT scan approximately 2 weeks ago that showed another stone in her left ureter that was greater than 5 mm. She states she was told at [facility] that they wanted her to try and pass this on her own without intervention. She states that she does not think this is possible because she has never passed one greater than 5 mm on her own. She states she would like another CT scan today because she feels that it is "obstructing her system". She states she does not want any pain medicine because she has plenty of this at home. Patient just had a CBC and chemistry panel drawn yesterday at the [facility] and she has these results on her phone. TRAVEL OUTSIDE OF THE [place] IN LAST 30 DAYS: No - Related Data Allergies/Adverse Reactions: acetaminophen [From Vicodin] Allergy (Severe, Verified 09/02/16 09:32) Hives cephalexin monohydrate [From Keflex] Allergy (Severe, Verified 04/11/16 00:29) Hives ciprofloxacin [From Cipro] Allergy (Severe, Verified 04/11/16 00:29) Hives clarithromycin [From Biaxin] Allergy (Severe, Verified 04/11/16 00:29) Hives diphenhydramine [From Benadryl] Allergy (Severe, Verified 09/02/16 09:32) Hives diphenhydramine HCl [From Benadryl] Allergy (Severe, Verified 04/11/16 00:29) Hives doxycycline [Doxycycline] Allergy (Severe, Verified 04/11/16 00:29) Hives gentamicin [Gentamicin] Allergy (Severe, Verified 04/11/16 00:29) Hives gluten [Gluten] Allergy (Severe, Verified 04/11/16 00:29) Diarrhea hydrocodone [Hydrocodone] Allergy (Severe, Verified 04/11/16 00:29) Hives ibuprofen Allergy (Severe, Verified 04/11/16 00:29) Hives iodine [Iodine] Allergy (Severe, Verified 04/11/16 00:29) Anaphylaxis latex [Latex] Allergy (Severe, Verified 04/11/16 00:29) Anaphylaxis levofloxacin [From Levaquin] Allergy (Severe, Verified 04/11/16 00:29) Hives meperidine HCl [From Demerol] Allergy (Severe, Verified 04/11/16 00:29) Hives methylprednisolone sodium succinate [From Solu-Medrol (PF)] Allergy (Severe, Verified 04/11/16 00:29) Hives morphine [Morphine] Allergy (Severe, Verified 04/11/16 00:29) Hives nitrofurantoin [From Macrobid] Allergy (Severe, Verified 04/11/16 00:29) Hives ondansetron HCl [From Zofran] Allergy (Severe, Verified 04/11/16 00:29) Anaphylaxis Opioids-Meperidine and Related [Opioids-Meperidine & Related] Allergy (Severe, Verified 04/11/16 00:29) Hives oxycodone [Oxycodone] Allergy (Severe, Verified 04/11/16 00:29) Hives promethazine HCl [From Phenergan] Allergy (Severe, Verified 04/11/16 00:29) paralysis Shellfish * [Shellfish] Allergy (Severe, Verified 04/11/16 00:29) Anaphylaxis Sulfa (Sulfonamide Antibiotics) Allergy (Severe, Verified 04/11/16 00:29) Anaphylaxis tetracycline [Tetracycline] Allergy (Severe, Verified 04/11/16 00:29) Hives vancomycin [Vancomycin] Allergy (Severe, Verified 04/11/16 00:29) Hives hydromorphone HCl [From Dilaudid] Adverse Reaction (Severe, Verified 04/11/16 00 :29) Hallucinations Cats Allergy (Severe, Uncoded 01/29/16 14:11) Anaphylaxis Dogs Allergy (Severe, Uncoded 01/29/16 14:11) Hives Past Medical History - Social History Frequency of alcohol use: None - Past Medical History Cardiac Medical History: Reports: Hx Hypercholesterolemia Denies: Hx Congestive Heart Failure, Hx Coronary Artery Disease, Hx Heart Attack, Hx Hypertension Pulmonary Medical History: Reports: Hx Asthma, Hx Pneumonia Denies: Hx Bronchitis, Hx COPD, Hx Tuberculosis Neurological Medical History: Denies: Hx Cerebrovascular Accident, Hx Seizures Renal/ Medical History: Reports: Hx Kidney Stones, Hx Ovarian Cysts. Denies: Hx End Stage Renal Disease, Hx Peritoneal Dialysis GI Medical History: Reports: Hx Hiatal Hernia, Hx Ulcer. 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 hernia repairs with mesh, Hx Urinary Tract Surgery - Pabladder removal, [place] pouch, suprapubic catheter for her [place] pouch. Denies: Hx Mastectomy, Hx Open Heart Surgery, Hx Pacemaker - Immunizations Immunizations up to date: Yes Hx Diphtheria, Pertussis, Tetanus Vaccination: Yes Physical Exam - Vital signs Vitals: Temp Pulse Resp BP Pulse Ox 98.4 F 60 16 141/79 H 97 04/28/17 16:53 04/28/17 16:53 04/28/17 16:53 04/28/17 16:53 04/28/17 16:53 Course - Vital Signs Vital signs: Temp Pulse Resp BP Pulse Ox 98.4 F 60 16 141/79 H 97 04/28/17 16:53 04/28/17 16:53 04/28/17 16:53 04/28/17 16:53 04/28/17 16:53
[2017-04-28 17:53] LABS: AMORPHOUS SEDIMENT,URINE TRACE /HPF; APPEARANCE,URINE CLOUDY; BILIRUBIN,URINE NEGATIVE (NEGATIVE); COLOR,URINE YELLOW; GLUCOSE, URINE NEGATIVE (NEGATIVE); KETONES,URINE NEGATIVE (NEGATIVE); LEUKOCYTE ESTERASE,URINE LARGE (NEGATIVE); NITRITE,URINE POSITIVE (NEGATIVE); PROTEIN,URINE 100 mg/dL (NEGATIVE); URINE SPECIFIC GRAVITY 1.011; UROBILINOGEN,URINE NEGATIVE mg/dL (<2.0)
--- NOTE | 2017-04-28 18:14 | RADIOLOGY REPORT (SQ) ---
EXAM DESCRIPTION: CT ABD/PELVIS NO ORAL OR IV COMPLETED DATE/TIME: 04/28/2017 5:37 pm REASON FOR STUDY: pain COMPARISON: 01/29/2016 TECHNIQUE: CT scan of the abdomen and pelvis performed without intravenous or oral contrast. Images reviewed with lung, soft tissue, and bone windows. Reconstructed coronal and sagittal MPR images revi ewed. All images stored on PACS. All CT scanners at this facility use dose modulation, iterative reconstruction, and/or weight based d osing when appropriate to reduce radiation dose to as low as reasonably achievable (ALARA). [facility]: Dose Right [facility]: CareDose [facility]: Dose Right [facility]: Teradose 4D [facility]: Smart Jebbit RADIATION DOSE: CT Rad equipment meets quality standard of care and radiation dose reduction techniq ues were employed. CTDIvol: 18.7 mGy. DLP: 989 mGy-cm.mGy. LIMITATIONS: None. FINDINGS: LOWER CHEST: No significant findings. No nodules or infiltrates. NON-CONTRASTED LIVER, SPLEEN, ADRENALS: The liver and adrenals are normal. Splenomegaly is present. PANCREAS: No masses. No peripancreatic inflammatory changes. GALLBLADDER: Surgically absent. RIGHT KIDNEY AND URETER: No suspicious masses. Assessment limited by lack of IV contrast. There is a 3 mm intrarenal calculus in the lower pole. There is a 5 mm calculus in the right ureter on image 50. Hydronephrosis. There is a percutaneous drainage catheter extending from an ileal conduit. LEFT KIDNEY AND URETER: No suspicious masses. Assessment limited by lack of IV contrast. 3 intraren al calculi are present. The largest is central and measures about 6 mm. No hydronephrosis or hydro ureter. AORTA AND RETROPERITONEUM: No aneurysm. No retroperitoneal masses or adenopathy. BOWEL AND PERITONEAL CAVITY: The right colon has been resected. APPENDIX: Surgically absent. PELVIS, BLADDER, AND ABDOMINAL WALL:Urinary bladder is absent. There is a 4 cm right adnexal cyst. BONES: No significant findings. OTHER: No other significant finding. IMPRESSION: 1. 5 mm calculus in right ureter resulting hydronephrosis. 2. Intrarenal calculi in each kidney as described. 3. Prior cystectomy with ileal conduit. 4. Prior resection of the right colon. 5. 4 cm right ovarian cyst. 6. Splenomegaly. COMMENT: Quality ID # [id number]: Final reports with documentation of one or more dose reduction techniques (e.g., Automated exposure control, adjustment of the mA and/or kV according to patient size, use of iterative reconstruction technique) TECHNICAL DOCUMENTATION: JOB ID: [id number] [employer]- All Rights Reserved Reading location - IP/workstation name: [email or web address]
--- NOTE | 2017-04-28 18:53 | ER Document Report ---
ED General - General Chief Complaint: Flank Pain Stated Complaint: ABDOMINAL PAIN Time Seen by Provider: 04/28/17 17:17 Mode of Arrival: Ambulatory TRAVEL OUTSIDE OF THE [place] IN LAST 30 DAYS: No - HPI Patient complains to provider of: right flank pain Onset: Last week Associated symptoms: Nausea, Weakness Exacerbated by: Denies Relieved by: Denies Similar symptoms previously: Yes Recently seen / treated by doctor: Yes Notes: Patient has an extensive and complicated past medical history. She states that she has a history of Villalpando which she follows up with the [facility] for. She states she returned from the [facility] here today. She states that 2 weeks ago she was in [facility] for a MRSA infection near her "pouch. She was treated with a 7 day course of cefepime and clindamycin. She states that approximately 1 week ago she went to [place] for kidney stone pain and was diagnosed with a 5 mm kidney stone. She states that [place] did call her urology group including Dr. Obrien at the [facility]. They stated that she needed to wait at least 2 weeks to see if she passed it on her own. Patient did go to the liver clinic at [facility] on Wednesday and she just flew back home yesterday. She states that the urology clinic would not see her at that time. She states she basically did talk to the urology nurse who again reiterated she had to wait 2 weeks. She states that she has been to [place] and seen Dr. Doherty for a nephrostomy tube. She also stated that she had a nephrostomy tube here. Patient does not want any pain medication. She has no nausea or vomiting. She does has increased pain. Patient has a past medical history of a bladder conduit secondary to interstitial cystitis in 1998. She states that she has a lot of scarring on her stents and she is unable to get ureteral stents placed she always has to have nephrostomy tubes. She states that she has passed 50 kidney stones in the past. Patient would like a nephrostomy tube placed here because she states "I cannot fly unless I have a nephrostomy tube if I have hydronephrosis". However I do believe the patient just returned from the [facility] yesterday and she must of flown. - Related Data Allergies/Adverse Reactions: acetaminophen [From Vicodin] Allergy (Severe, Verified 09/02/16 09:32) Hives cephalexin monohydrate [From Keflex] Allergy (Severe, Verified 04/11/16 00:29) Hives ciprofloxacin [From Cipro] Allergy (Severe, Verified 04/11/16 00:29) Hives clarithromycin [From Biaxin] Allergy (Severe, Verified 04/11/16 00:29) Hives diphenhydramine [From Benadryl] Allergy (Severe, Verified 09/02/16 09:32) Hives diphenhydramine HCl [From Benadryl] Allergy (Severe, Verified 04/11/16 00:29) Hives doxycycline [Doxycycline] Allergy (Severe, Verified 04/11/16 00:29) Hives gentamicin [Gentamicin] Allergy (Severe, Verified 04/11/16 00:29) Hives gluten [Gluten] Allergy (Severe, Verified 04/11/16 00:29) Diarrhea hydrocodone [Hydrocodone] Allergy (Severe, Verified 04/11/16 00:29) Hives ibuprofen Allergy (Severe, Verified 04/11/16 00:29) Hives iodine [Iodine] Allergy (Severe, Verified 04/11/16 00:29) Anaphylaxis latex [Latex] Allergy (Severe, Verified 04/11/16 00:29) Anaphylaxis levofloxacin [From Levaquin] Allergy (Severe, Verified 04/11/16 00:29) Hives meperidine HCl [From Demerol] Allergy (Severe, Verified 04/11/16 00:29) Hives methylprednisolone sodium succinate [From Solu-Medrol (PF)] Allergy (Severe, Verified 04/11/16 00:29) Hives morphine [Morphine] Allergy (Severe, Verified 04/11/16 00:29) Hives nitrofurantoin [From Macrobid] Allergy (Severe, Verified 04/11/16 00:29) Hives ondansetron HCl [From Zofran] Allergy (Severe, Verified 04/11/16 00:29) Anaphylaxis Opioids-Meperidine and Related [Opioids-Meperidine & Related] Allergy (Severe, Verified 04/11/16 00:29) Hives oxycodone [Oxycodone] Allergy (Severe, Verified 04/11/16 00:29) Hives promethazine HCl [From Phenergan] Allergy (Severe, Verified 04/11/16 00:29) paralysis Shellfish * [Shellfish] Allergy (Severe, Verified 04/11/16 00:29) Anaphylaxis Sulfa (Sulfonamide Antibiotics) Allergy (Severe, Verified 04/11/16 00:29) Anaphylaxis tetracycline [Tetracycline] Allergy (Severe, Verified 04/11/16 00:29) Hives vancomycin [Vancomycin] Allergy (Severe, Verified 04/11/16 00:29) Hives hydromorphone HCl [From Dilaudid] Adverse Reaction (Severe, Verified 04/11/16 00 :29) Hallucinations Cats Allergy (Severe, Uncoded 01/29/16 14:11) Anaphylaxis Dogs Allergy (Severe, Uncoded 01/29/16 14:11) Hives Past Medical History - General Information source: Patient - Social History Smoking Status: Never Smoker Frequency of alcohol use: None Family History: Reviewed & Not Pertinent, CVA, Malignancy, Thyroid Disfunction Patient has suicidal ideation: No Patient has homicidal ideation: No - Past Medical History Cardiac Medical History: Reports: Hx Hypercholesterolemia Denies: Hx Congestive Heart Failure, Hx Coronary Artery Disease, Hx Heart Attack, Hx Hypertension Pulmonary Medical History: Reports: Hx Asthma, Hx Pneumonia Denies: Hx Bronchitis, Hx COPD, Hx Tuberculosis EENT Medical History: Reports: None Neurological Medical History: Reports: None. Denies: Hx Cerebrovascular Accident, Hx Seizures Endocrine Medical History: Reports: None Renal/ Medical History: Reports: Hx Kidney Stones, Hx Ovarian Cysts. Denies: Hx End Stage Renal Disease, Hx Peritoneal Dialysis Malignancy Medical History: Reports: None GI Medical History: Reports: Hx Hiatal Hernia, Hx Ulcer. 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 hernia repairs with mesh, Hx Urinary Tract Surgery - Pabladder removal, [place] pouch, suprapubic catheter for her [place] pouch. Denies: Hx Mastectomy, Hx Open Heart Surgery, Hx Pacemaker - Immunizations Immunizations up to date: Yes Hx Diphtheria, Pertussis, Tetanus Vaccination: Yes Hx Pneumococcal Vaccination: 10/29/14 Review of Systems - Review of Systems Constitutional: Chills, Weakness EENT: No symptoms reported Cardiovascular: No symptoms reported Respiratory: No symptoms reported Gastrointestinal: Abdominal pain, Nausea Genitourinary: See HPI Female Genitourinary: No symptoms reported Musculoskeletal: No symptoms reported Skin: No symptoms reported Hematologic/Lymphatic: No symptoms reported Neurological/Psychological: No symptoms reported Physical Exam - Vital signs Vitals: Temp Pulse Resp BP Pulse Ox 98.4 F 60 16 141/79 H 97 04/28/17 16:53 04/28/17 16:53 04/28/17 16:53 04/28/17 16:53 04/28/17 16:53 - Notes Notes: PHYSICAL EXAMINATION: GENERAL: Ill-appearing, mild distress secondary to right flank pain. HEAD: Atraumatic, normocephalic. EYES: Pupils equal round and reactive to light, extraocular movements intact, conjunctiva are normal. ENT: Nares patent, oropharynx clear without exudates. M mildly dry mucous membranes. NECK: Normal range of motion, supple without lymphadenopathy LUNGS: Breath sounds clear to auscultation bilaterally and equal. No wheezes rales or rhonchi. HEART: Regular rate and rhythm without murmurs ABDOMEN: Obese. Patient has multiple surgical incisional scars. Patient has a urine bag in her right lower quadrant with mildly darkened urine in it. Just medial to the urine bag is a scar from an old's urinary catheter placement. Female : deferred Musculoskeletal: Normal range of motion, no pitting or edema. No cyanosis. NEUROLOGICAL: Cranial nerves grossly intact. Normal speech, normal gait. Normal sensory, motor exams PSYCH: Normal mood, normal affect. SKIN: Warm, Dry, normal turgor, no rashes or lesions noted. Course - Re-evaluation Re-evalutation: 04/28/17 19:14 I did call [facility] at [phone]. Dr. Sanz is unavailable as a new he is on vacation until next week. Dr. Schneider is the on-call urologist in his group she will call me back in approximately 15-20 minutes. 04/28/17 19:[address] with [address] Schneider. She is the urology resident at [facility]. She states she will look at the records and call me back. She did agree that hydronephrosis is not a reason automatically for a right nephrostomy tube. Am awaiting blood work and I will call her back when that has resulted. Her cell phone is [phone]. States that she had the results of a CAT scan that was done 2 days ago and it did not show a hydronephrosis. She states that it looks like the kidney stone was in the mid right ureter. 04/28/17 19:37 04/28/17 22:41 I did send the actual CT to Dr. Schneider via phone with no identifying information. She did texting back and stated that she would admit for percutaneous nephrostomy as well as antibiotics with a new [place] pain and positive urine plus a complicated diversion. I am attempting to find out if we do percutaneous nephrostomy tubes at [place]. 04/28/17 23:[address] Wendi Roy at [facility]. Patient has been accepted. Attendings name is . EMTALA paperwork filled out. Patient aware of transfer. - Vital Signs Vital signs: Temp Pulse Resp BP Pulse Ox 98.4 F 60 16 141/79 H 97 04/28/17 16:53 04/28/17 16:53 04/28/17 16:53 04/28/17 16:53 04/28/17 16:53 - Laboratory Result Diagrams: 04/28/17 19:40 04/28/17 19:40 Laboratory results interpreted by me: 04/28/17 04/28/17 17:20 19:40 Hct 35.3 L Plt Count 93 L Lymphocytes % 12.6 L Urine Protein 100 H Urine Blood MODERATE H Urine Nitrite POSITIVE H Ur Leukocyte Esterase LARGE H - Diagnostic Test Radiology reviewed: Image reviewed, Reports reviewed Critical Care Note - Critical Care Note Total time excluding time spent on procedures (mins): 45 Comments: 45 minutes of critical care time spent in direct contact evaluating and reevaluating the patient, treating symptoms, reviewing labs and studies and speaking with family and consultants excluding any procedures Discharge - Discharge Clinical Impression: Hydronephrosis, right, Bladder replaced, Vomiting, UTI (urinary tract infection ), Intractable pain Condition: Serious Disposition: PENDING SALE TO [facility] Referrals: DAV PENA MD [Primary Care Provider] - Follow up as needed
[2017-04-28] MEDS ORDERED: FENTANYL CITRATE INJ/PF 100 MCG/2 ML AMPUL IV ONE ×3 (19:42→22:42)
[2017-04-28 19:55] LABS: ABSOLUTE EOSINOPHILS # (AUTO) 0.1 10^3/uL (0.0-0.6); ABSOLUTE LYMPHOCYTES (AUTO) 0.6 10^3/uL (0.5-4.7); ABSOLUTE MONOCYTES (AUTO) 0.6 10^3/uL (0.1-1.4); ABSOLUTE NEUT (AUTO) 3.4 10^3/uL (1.7-8.2); BASOPHILS % (AUTO) 0.6 % (0-2); EOSINOPHILS % (AUTO) 3.1 % (0-6); HEMATOCRIT 35.3 % (36.0-47.0); HEMOGLOBIN 12.3 g/dL (12.0-15.5); LYMPHOCYTES % (AUTO) 12.6 % (13-45); MEAN CORPUSCULAR HEMOGLOBIN 32.9 pg (27.0-33.4); MEAN CORPUSCULAR HGB CONC 34.8 g/dL (32.0-36.0); MEAN CORPUSCULAR VOLUME 95 fl (80-97); MONOCYTES % (AUTO) 12.6 % (3-13); RED BLOOD COUNT 3.73 10^6/uL (3.72-5.28); RED CELL DISTRIBUTION WIDTH 13.7 % (11.5-14.0); SEGMENTED NEUTROPHILS % (AUTO) 71.1 % (42-78); TOTAL CELLS COUNTED % (AUTO) 100 %; WHITE BLOOD COUNT 4.7 10^3/uL (4.0-10.5)
[2017-04-28 19:56] LABS: PLATELET COUNT 93 10^3/uL (150-450)
[2017-04-28 20:04] LABS: INTERNATIONAL RATION (INR) 1.09; PROTHROMBIN TIME 14.8 SEC (11.4-15.4)
[2017-04-28 20:12] LABS: ALANINE AMINOTRANSFERASE 27 U/L (9-52); ALBUMIN 4.3 g/dL (3.5-5.0); ALKALINE PHOSPHATASE 85 U/L (38-126); ANION GAP 10 (5-19); ASPARTATE AMINO TRANSFERASE 31 U/L (14-36); BILIRUBIN,DIRECT 0.2 mg/dL (0.0-0.4); BILIRUBIN,TOTAL 1.3 mg/dL (0.2-1.3); BLOOD UREA NITROGEN 10 mg/dL (7-20); CALCIUM 9.4 mg/dL (8.4-10.2); CARBON DIOXIDE 25 mmol/L (22-30); CHLORIDE 105 mmol/L (98-107); GLUCOSE 92 mg/dL (75-110); SODIUM 139.9 mmol/L (137-145); TOTAL PROTEIN 7.5 g/dL (6.3-8.2)
[2017-04-28] MEDS ORDERED: CLINDAMYCIN 900 MG/D5W RTU 50 ML IV SCH (23:15)
[2017-04-29] MEDS ORDERED: FENTANYL CITRATE INJ/PF 100 MCG/2 ML AMPUL IV ONE (00:07)
[2017-04-29 00:18] VITALS: BP 137/78
[2017-04-29 01:12] LABS: APPEARANCE,URINE CLOUDY; BILIRUBIN,URINE NEGATIVE (NEGATIVE); COLOR,URINE YELLOW; GLUCOSE, URINE NEGATIVE (NEGATIVE); KETONES,URINE NEGATIVE (NEGATIVE); LEUKOCYTE ESTERASE,URINE LARGE (NEGATIVE); NITRITE,URINE NEGATIVE (NEGATIVE); PROTEIN,URINE 100 mg/dL (NEGATIVE); URINE SPECIFIC GRAVITY 1.008; UROBILINOGEN,URINE NEGATIVE mg/dL (<2.0)
== END 2017-04-29 01:50 | disposition short-term general hospital (02) ==
LOC: ER 16:37
DX: N13.30 Unspecified hydronephrosis (principal); N39.0 Urinary tract infection, site not specified; R10.9 Unspecified abdominal pain; Z96.0 Presence of urogenital implants; R53.1 Weakness; R11.2 Nausea with vomiting, unspecified; E78.00 Pure hypercholesterolemia, unspecified; Z86.14 Personal history of Methicillin resistant Staphylococcus aureus infection; Z88.3 Allergy status to other anti-infective agents; Z91.040 Latex allergy status; Z91.013 Allergy to seafood; Z87.442 Personal history of urinary calculi
CPT/HCPCS: 96376; 99291; 96375; 96365; 36415; 87086; 85025; 85610; 87088; 80053; 81001; 87186; 74176; J3010 ×2

== ENCOUNTER → 2017-05-05 | Outpatient (CLI) | payer OTHER, MEDICARE ==
--- NOTE | 2017-05-05 17:38 | RADIOLOGY REPORT (SQ) ---
EXAM DESCRIPTION: U/S RETROPERITON (RENAL/AORTA) COMPLETED DATE/TIME: 05/05/2017 5:27 pm REASON FOR STUDY: R10.9 UNSPECIFIED ABDOMINAL PAIN N20.0 CALCULUS OF KIDNEY R10.9 UNSPECIFIED ABDO RACQUEL PAIN COMPARISON: CT dated 04/28/2017. TECHNIQUE: Dynamic and static grayscale images acquired of the kidneys and bladder and recorded on P ACS. Additional selected color Doppler and spectral images recorded. LIMITATIONS: None. FINDINGS: RIGHT KIDNEY: Normal size. Normal echogenicity. No solid or suspicious masses. No hydronep hrosis. No calcifications. LEFT KIDNEY: Normal size. Normal echogenicity. No solid or suspicious masses. No hydronephrosis. No calcifications. BLADDER: Previous cystectomy. Reconstructed bladder decompressed with King catheter in place. OTHER FINDINGS: No other significant finding. IMPRESSION: UNREMARKABLE RENAL ULTRASOUND. NO HYDRONEPHROSIS OR OTHER ACUTE FINDINGS. TECHNICAL DOCUMENTATION: JOB ID: [id number] [employer]- All Rights Reserved Reading location - IP/workstation name: [email or web address]
== END ==
LOC: RAD 16:40
PROVIDERS: ATTEND Nurse Practitioner
DX: R10.9 Unspecified abdominal pain (principal)
CPT/HCPCS: 76770

== ENCOUNTER → 2017-05-10 | Outpatient (CLI) | payer OTHER, MEDICARE ==
[2017-05-10 14:26] LABS: ABSOLUTE BASOPHILS # (AUTO) 0.1 10^3/uL (0.0-0.2); ABSOLUTE EOSINOPHILS # (AUTO) 0.3 10^3/uL (0.0-0.6); ABSOLUTE LYMPHOCYTES (AUTO) 0.6 10^3/uL (0.5-4.7); ABSOLUTE MONOCYTES (AUTO) 0.7 10^3/uL (0.1-1.4); ABSOLUTE NEUT (AUTO) 2.8 10^3/uL (1.7-8.2); BASOPHILS % (AUTO) 1.2 % (0-2); EOSINOPHILS % (AUTO) 6.3 % (0-6); HEMOGLOBIN 12.8 g/dL (12.0-15.5); LYMPHOCYTES % (AUTO) 12.8 % (13-45); MEAN CORPUSCULAR HEMOGLOBIN 32.5 pg (27.0-33.4); MEAN CORPUSCULAR HGB CONC 34.6 g/dL (32.0-36.0); MEAN CORPUSCULAR VOLUME 94 fl (80-97); MONOCYTES % (AUTO) 15.8 % (3-13); PLATELET COUNT 105 10^3/uL (150-450); RED BLOOD COUNT 3.94 10^6/uL (3.72-5.28); RED CELL DISTRIBUTION WIDTH 13.5 % (11.5-14.0); SEGMENTED NEUTROPHILS % (AUTO) 63.9 % (42-78); TOTAL CELLS COUNTED % (AUTO) 100 %; WHITE BLOOD COUNT 4.4 10^3/uL (4.0-10.5)
[2017-05-10 14:31] LABS: AMORPHOUS SEDIMENT,URINE TRACE /HPF; APPEARANCE,URINE CLOUDY; BILIRUBIN,URINE NEGATIVE (NEGATIVE); COLOR,URINE YELLOW; GLUCOSE, URINE NEGATIVE (NEGATIVE); KETONES,URINE NEGATIVE (NEGATIVE); LEUKOCYTE ESTERASE,URINE LARGE (NEGATIVE); NITRITE,URINE NEGATIVE (NEGATIVE); PROTEIN,URINE >=500 mg/dL (NEGATIVE); URINE SPECIFIC GRAVITY 1.015; UROBILINOGEN,URINE NEGATIVE mg/dL (<2.0)
== END ==
LOC: LAB 13:42
PROVIDERS: ATTEND Obstetrics & Gynecology
DX: N99.528 Other complication of incontinent external stoma of urinary tract (principal)
CPT/HCPCS: 36415; 81001; 85025; 87086; 87088; 87186

== ENCOUNTER 2018-11-29 08:28 | Emergency (ER) | payer MEDICARE, OTHER ==
[2018-11-29 09:04] LABS: ABSOLUTE EOSINOPHILS # (AUTO) 0.3 10^3/uL (0.0-0.6); ABSOLUTE LYMPHOCYTES (AUTO) 0.5 10^3/uL (0.5-4.7); ABSOLUTE MONOCYTES (AUTO) 0.5 10^3/uL (0.1-1.4); ABSOLUTE NEUT (AUTO) 2.2 10^3/uL (1.7-8.2); BASOPHILS % (AUTO) 0.8 % (0-2); HEMATOCRIT 39.1 % (36.0-47.0); HEMOGLOBIN 13.6 g/dL (12.0-15.5); LYMPHOCYTES % (AUTO) 14.9 % (13-45); MEAN CORPUSCULAR HEMOGLOBIN 32.5 pg (27.0-33.4); MEAN CORPUSCULAR HGB CONC 34.8 g/dL (32.0-36.0); MEAN CORPUSCULAR VOLUME 94 fl (80-97); MONOCYTES % (AUTO) 14.2 % (3-13); RED BLOOD COUNT 4.18 10^6/uL (3.72-5.28); RED CELL DISTRIBUTION WIDTH 13.6 % (11.5-14.0); SEGMENTED NEUTROPHILS % (AUTO) 62.1 % (42-78); TOTAL CELLS COUNTED % (AUTO) 100 %; WHITE BLOOD COUNT 3.6 10^3/uL (4.0-10.5)
[2018-11-29 09:20] LABS: ALBUMIN 3.9 g/dL (3.5-5.0); ALKALINE PHOSPHATASE 74 U/L (38-126); ANION GAP 9 (5-19); ASPARTATE AMINO TRANSFERASE 26 U/L (14-36); BILIRUBIN,DIRECT 0.2 mg/dL (0.0-0.4); BILIRUBIN,TOTAL 0.7 mg/dL (0.2-1.3); BLOOD UREA NITROGEN 16 mg/dL (7-20); CALCIUM 9.3 mg/dL (8.4-10.2); CARBON DIOXIDE 24 mmol/L (22-30); CHLORIDE 107 mmol/L (98-107); GLUCOSE 102 mg/dL (75-110); POTASSIUM 4.2 mmol/L (3.6-5.0); TOTAL PROTEIN 7.4 g/dL (6.3-8.2)
[2018-11-29 09:29] LABS: PLATELET COUNT 61 10^3/uL (150-450)
[2018-11-29 09:30] LABS: APPEARANCE,URINE CLOUDY; BILIRUBIN,URINE NEGATIVE (NEGATIVE); COLOR,URINE YELLOW; GLUCOSE, URINE NEGATIVE (NEGATIVE); KETONES,URINE NEGATIVE (NEGATIVE); LEUKOCYTE ESTERASE,URINE MODERATE (NEGATIVE); NITRITE,URINE POSITIVE (NEGATIVE); PROTEIN,URINE 100 mg/dL (NEGATIVE); URINE SPECIFIC GRAVITY 1.014; UROBILINOGEN,URINE NEGATIVE mg/dL (<2.0)
[2018-11-29] MEDS ORDERED: KETOROLAC TROMETHAMINE INJ/PF 30 MG/1 ML SDV IV ONE (10:06)
[2018-11-29] MEDS ORDERED: METOCLOPRAMIDE HCL INJ/PF 10 MG/2 ML SDV IV ONE (10:09)
--- NOTE | 2018-11-29 11:37 | RADIOLOGY REPORT (SQ) ---
EXAM DESCRIPTION: CT ABD/PELVIS NO ORAL OR IV COMPLETED DATE/TIME: 11/29/2018 11:00 am REASON FOR STUDY: R flank pain H/O stones COMPARISON: 04/28/2017 TECHNIQUE: CT scan of the abdomen and pelvis performed without intravenous or oral contrast. Images reviewed with lung, soft tissue, and bone windows. Reconstructed coronal and sagittal MPR images revi ewed. All images stored on PACS. All CT scanners at this facility use dose modulation, iterative reconstruction, and/or weight based d osing when appropriate to reduce radiation dose to as low as reasonably achievable (ALARA). [facility]: Dose Right [facility]: CareDose [facility]: Dose Right [facility]: Teradose 4D [facility]: Smart 360T RADIATION DOSE: CT Rad equipment meets quality standard of care and radiation dose reduction techniq ues were employed. CTDIvol: 18.2 mGy. DLP: 1051 mGy-cm.mGy. LIMITATIONS: None. FINDINGS: LOWER CHEST: No significant findings. No nodules or infiltrates. NON-CONTRASTED LIVER, SPLEEN, ADRENALS: Evaluation limited by lack of IV contrast. No identified sign ificant masses. Splenomegaly. PANCREAS: No masses. No peripancreatic inflammatory changes. GALLBLADDER: Surgically absent. RIGHT KIDNEY AND URETER: No suspicious masses. Assessment limited by lack of IV contrast. There is m oderate right hydronephrosis with extensive fat stranding about the kidney and ureter. LEFT KIDNEY AND URETER: No suspicious masses. Assessment limited by lack of IV contrast. No signifi cant calcifications. Anatomy of the left ureter is unclear, presumably diverted to urinary conduit status post cystectomy. AORTA AND RETROPERITONEUM: No aneurysm. No retroperitoneal masses or adenopathy. BOWEL AND PERITONEAL CAVITY: No obvious masses or inflammatory changes. No free fluid. APPENDIX: Not clearly visualized. PELVIS, BLADDER, AND ABDOMINAL WALL:No abnormal masses. No free fluid. Status post cystectomy with r ight lower quadrant ostomy. BONES: No significant findings. OTHER: No other significant finding. IMPRESSION: 1. Redemonstrated postoperative findings of cystectomy with right lower quadrant urinar y conduit. There is moderate right hydronephrosis with extensive fat stranding about the kidney and ureter, concerning for infection or acute obstruction. No obvious obstructing calculus or other abno rmality. Anatomy of the left ureter is unclear, presumably diverted to urinary conduit. Previously seen bilateral nephrolithiasis is now absent. 2. Splenomegaly. COMMENT: Quality ID # [id number]: Final reports with documentation of one or more dose reduction techniques (e.g., Automated exposure control, adjustment of the mA and/or kV according to patient size, use of iterative reconstruction technique) TECHNICAL DOCUMENTATION: JOB ID: [id number] [employer]- All Rights Reserved Reading location - IP/workstation name: [email or web address]
[2018-11-29] MEDS ORDERED: CEFTRIAXONE 1 GM/D5W RTU 1 GM/50 ML RTUPB IV ONE (12:43)
--- NOTE | 2018-11-29 16:35 | ER Document Report ---
ED General - General Chief Complaint: Flank Pain Stated Complaint: FLANK PAIN Time Seen by Provider: 11/29/18 09:21 Primary Care Provider: DAV PENA MD [Primary Care Provider] - Follow up as needed TRAVEL OUTSIDE OF THE [place] IN LAST 30 DAYS: No - HPI Patient complains to provider of: right sided flank pain Onset: Just prior to arrival Onset/Duration: Gradual Quality of pain: No pain Severity: Mild Pain Level: 2 Context: 48 year old female arrives with complaints of right sided flank pain and has a long complex urologic history. She follows with Dr. Hamilton - Urology at [facility] in [facility] and sees [facility] locally and Dr. Pena is PCP here in [place]. She tells me she has sick for 2-3 days with right flank pain and fever and chills. No resp symptoms. No chest pain and no sob. Multiple allergies. Exacerbated by: Denies Relieved by: Denies - Related Data Allergies/Adverse Reactions: acetaminophen [From Vicodin] Allergy (Severe, Verified 09/02/16 09:32) Hives cephalexin monohydrate [From Keflex] Allergy (Severe, Verified 04/11/16 00:29) Hives ciprofloxacin [From Cipro] Allergy (Severe, Verified 04/11/16 00:29) Hives clarithromycin [From Biaxin] Allergy (Severe, Verified 04/11/16 00:29) Hives diphenhydramine [From Benadryl] Allergy (Severe, Verified 09/02/16 09:32) Hives diphenhydramine HCl [From Benadryl] Allergy (Severe, Verified 04/11/16 00:29) Hives doxycycline [Doxycycline] Allergy (Severe, Verified 04/11/16 00:29) Hives gentamicin [Gentamicin] Allergy (Severe, Verified 04/11/16 00:29) Hives gluten [Gluten] Allergy (Severe, Verified 04/11/16 00:29) Diarrhea hydrocodone [Hydrocodone] Allergy (Severe, Verified 04/11/16 00:29) Hives ibuprofen Allergy (Severe, Verified 04/11/16 00:29) Hives iodine [Iodine] Allergy (Severe, Verified 04/11/16 00:29) Anaphylaxis latex [Latex] Allergy (Severe, Verified 11/29/18 08:34) Anaphylaxis levofloxacin [From Levaquin] Allergy (Severe, Verified 11/29/18 08:34) Hives meperidine HCl [From Demerol] Allergy (Severe, Verified 11/29/18 08:34) Hives methylprednisolone sodium succinate [From Solu-Medrol (PF)] Allergy (Severe, Verified 11/29/18 08:34) Hives morphine [Morphine] Allergy (Severe, Verified 11/29/18 08:34) Hives nitrofurantoin [From Macrobid] Allergy (Severe, Verified 11/29/18 08:34) Hives ondansetron HCl [From Zofran] Allergy (Severe, Verified 11/29/18 08:34) Anaphylaxis Opioids-Meperidine and Related [Opioids-Meperidine & Related] Allergy (Severe, Verified 11/29/18 08:34) Hives oxycodone [Oxycodone] Allergy (Severe, Verified 11/29/18 08:34) Hives promethazine HCl [From Phenergan] Allergy (Severe, Verified 11/29/18 08:34) paralysis Shellfish * [Shellfish] Allergy (Severe, Verified 11/29/18 08:34) Anaphylaxis Sulfa (Sulfonamide Antibiotics) Allergy (Severe, Verified 11/29/18 08:34) Anaphylaxis tetracycline [Tetracycline] Allergy (Severe, Verified 11/29/18 08:34) Hives vancomycin [Vancomycin] Allergy (Severe, Verified 11/29/18 08:34) Hives ceftriaxone [From Rocephin] Allergy (Verified 11/29/18 08:35) hydromorphone HCl [From Dilaudid] Adverse Reaction (Severe, Verified 11/29/18 08:34) Hallucinations Cats Allergy (Severe, Uncoded 11/29/18 08:34) Anaphylaxis Dogs Allergy (Severe, Uncoded 11/29/18 08:34) Hives gentamicin Allergy (Uncoded 11/29/18 08:35) Past Medical History - Social History Smoking Status: Never Smoker Chew tobacco use (# tins/day): No Frequency of alcohol use: None Drug Abuse: None, Prescription drugs Family History: Reviewed & Not Pertinent, CVA, Malignancy, Thyroid Disfunction Patient has suicidal ideation: No Patient has homicidal ideation: No - Past Medical History Cardiac Medical History: Reports: Hx Hypercholesterolemia Denies: Hx Congestive Heart Failure, Hx Coronary Artery Disease, Hx Heart Attack, Hx Hypertension Pulmonary Medical History: Reports: Hx Asthma, Hx Pneumonia Denies: Hx Bronchitis, Hx COPD, Hx Tuberculosis Neurological Medical History: Denies: Hx Cerebrovascular Accident, Hx Seizures, Hx Parkinson's Disease Renal/ Medical History: Reports: Hx Kidney Stones, Hx Ovarian Cysts. Denies: Hx End Stage Renal Disease, Hx Peritoneal Dialysis GI Medical History: Reports: Hx Hiatal Hernia, Hx Ulcer. 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 hernia repairs with mesh, Hx Urinary Tract Surgery - Pabladder removal, [place] pouch, suprapubic catheter for her [place] pouch. Denies: Hx Mastectomy, Hx Open Heart Surgery, Hx Pacemaker - Immunizations Immunizations up to date: Yes Hx Diphtheria, Pertussis, Tetanus Vaccination: Yes Hx Pneumococcal Vaccination: 10/29/14 Review of Systems - Review of Systems Constitutional: Chills, Fever EENT: No symptoms reported Cardiovascular: No symptoms reported Respiratory: No symptoms reported Gastrointestinal: No symptoms reported Genitourinary: No symptoms reported Female Genitourinary: No symptoms reported Musculoskeletal: Muscle pain Skin: No symptoms reported Hematologic/Lymphatic: No symptoms reported Neurological/Psychological: No symptoms reported Physical Exam - Vital signs Vitals: Temp Pulse Resp BP Pulse Ox 98.2 F 68 20 152/93 H 98 11/29/18 08:32 11/29/18 08:32 11/29/18 08:32 11/29/18 08:32 11/29/18 08:32 Interpretation: Normal - General General appearance: Appears well, Alert - HEENT Head: Normocephalic, Atraumatic Eyes: Normal Pupils: PERRL - Respiratory Respiratory status: No respiratory distress Chest status: Nontender Breath sounds: Normal Chest palpation: Normal - Cardiovascular Rhythm: Regular Heart sounds: Normal auscultation Murmur: No - Abdominal Inspection: Normal Distension: No distension Bowel sounds: Normal Tenderness: Nontender Organomegaly: No organomegaly - Back Back: Normal, Nontender - Extremities General upper extremity: Normal inspection, Nontender, Normal color, Normal ROM, Normal temperature General lower extremity: Normal inspection, Nontender, Normal color, Normal ROM, Normal temperature, Normal weight bearing. No: Yessica's sign - Neurological Neuro grossly intact: Yes Cognition: Normal Orientation: AAOx4 Juancho Coma Scale Eye Opening: Spontaneous [place]o Coma Scale Verbal: Oriented Ju[place]o Coma Scale Motor: Obeys Commands Juancho Coma Scale Total: 15 Speech: Normal Motor strength normal: LUE, RUE, LLE, RLE Sensory: Normal - Psychological Associated symptoms: Normal affect, Normal mood - Skin Skin Temperature: Warm Skin Moisture: Dry Skin Color: Normal Course - Re-evaluation Re-evalutation: 11/29/18 16:36 MDM Complex lady with bladder conduit. I have discussed with Dr. Chas Castano for [facility]. I had called the [facility] but Dr. Cade is on vacation and has only residents available to cover. Dr. Pena's office has been contacted by me and they are happy to facilitate outpt Rocephin shots daily. This is reasonable in my opinion and the pt is comfortable. A lthough her platelet count is a bit low her lactic acid is reassuring and she is hypertensive here. We discussed return precautions - dizziness, weakness, vomiting or other concerns. She also understands to follow up with Dr. Pena tomorrow for IM Rocephin. - Vital Signs Vital signs: Temp Pulse Resp BP Pulse Ox 97.9 F 53 L 15 130/89 H 98 11/29/18 17:12 11/29/18 17:12 11/29/18 17:12 11/29/18 17:12 11/29/18 17:12 - Laboratory Result Diagrams: 11/29/18 08:50 11/29/18 08:50 Laboratory results interpreted by me: 11/29/18 11/29/18 08:44 08:50 WBC 3.6 L Plt Count 61 L [place] % (Auto) 14.2 H Eos % (Auto) 8.0 H Urine Protein 100 H Urine Blood MODERATE H Urine Nitrite POSITIVE H Ur Leukocyte Esterase MODERATE H Discharge - Discharge Clinical Impression: Pyelonephritis, Complication of urostomy, Thrombocytopenia Condition: Good Disposition: HOME, SELF-CARE Additional Instructions: Please call Dr. Pena's office tomorrow at 800 for follow up. Return here for any problems or any concerns. Return here for any problems or any concerns. Referrals: DAV PENA MD [Primary Care Provider] - Follow up as needed
[2018-11-29 17:19] VITALS: BP 130/89
== END 2018-11-29 17:19 | disposition home or self-care (01) ==
LOC: ER 08:28
DX: N12 Tubulo-interstitial nephritis, not specified as acute or chronic (principal); N99.528 Other complication of incontinent external stoma of urinary tract; Y83.3 Surgical operation with formation of external stoma as the cause of abnormal reaction of the patient, or of later complication, without mention of misadventure at the time of the procedure; D69.6 Thrombocytopenia, unspecified; R10.9 Unspecified abdominal pain; M79.10 Myalgia, unspecified site; R50.9 Fever, unspecified; I10 Essential (primary) hypertension; J45.909 Unspecified asthma, uncomplicated; Z87.442 Personal history of urinary calculi; Z87.42 Personal history of other diseases of the female genital tract; Z90.6 Acquired absence of other parts of urinary tract; Z90.49 Acquired absence of other specified parts of digestive tract; Z88.8 Allergy status to other drugs, medicaments and biological substances; Z88.5 Allergy status to narcotic agent; Z91.040 Latex allergy status; Z88.1 Allergy status to other antibiotic agents; Z87.892 Personal history of anaphylaxis; Z91.013 Allergy to seafood; Z88.2 Allergy status to sulfonamides; Z91.048 Other nonmedicinal substance allergy status
CPT/HCPCS: 36415; 87040; 83605; 83690; 84703; 85025; 80053; 81001; 74176; J1885; J2765; J0696

== ENCOUNTER 2019-01-12 12:06 | Emergency (ER) | payer MEDICARE, OTHER ==
--- NOTE | 2019-01-12 12:28 | ER Document Report ---
ED Medical Screen (RME) - General Chief Complaint: Chest Pain Stated Complaint: CHEST PAIN,DIZZY Time Seen by Provider: 01/12/19 12:24 Primary Care Provider: DAV PENA MD [Primary Care Provider] - Follow up as needed TRAVEL OUTSIDE OF THE [place] IN LAST 30 DAYS: No - HPI Notes: 01/12/19 12:25 Patient is a 48-year-old female with history of Marfan syndrome, pulmonary edema, permanent indwelling suprapubic catheter status post bladder removal who presents complaining of chest pain that woke her from sleep this morning it is in her midsternal area. Patient states that when she stands the pain worsens and she will become dizzy. Patient states that she had EMS come and performed an EKG which was unremarkable, but patient declined transport and went to her family doctor, Dr. Pena. They performed another EKG at that point and they noted a change from baseline and sent her here for evaluation. No associated diaphoresis or shortness of breath. On a side note, patient states that she did hit her knee against a curb 2 days ago and has had bruising to the knee anteriorly. No fever, abdominal pain, nausea/vomiting. No history of DVT, PE, smoking, hormone use, CAD. I have treated and performed a rapid initial assessment of this patient. A comprehensive ED assessment and evaluation of the patient, analysis of test results and completion of medical decision making process will be conducted by additional ED providers. PHYSICAL EXAMINATION: GENERAL: Well-appearing, well-nourished and in no acute distress. A&Ox4. Answers questions appropriately. Lungs: CTAB Heart: RRR Legs: No lower extremity asymmetry or edema. No calf tenderness bilaterally. - Related Data Allergies/Adverse Reactions: acetaminophen [From Vicodin] Allergy (Severe, Verified 09/02/16 09:32) Hives cephalexin monohydrate [From Keflex] Allergy (Severe, Verified 04/11/16 00:29) Hives ciprofloxacin [From Cipro] Allergy (Severe, Verified 04/11/16 00:29) Hives clarithromycin [From Biaxin] Allergy (Severe, Verified 04/11/16 00:29) Hives diphenhydramine [From Benadryl] Allergy (Severe, Verified 09/02/16 09:32) Hives diphenhydramine HCl [From Benadryl] Allergy (Severe, Verified 04/11/16 00:29) Hives doxycycline [Doxycycline] Allergy (Severe, Verified 04/11/16 00:29) Hives gentamicin [Gentamicin] Allergy (Severe, Verified 04/11/16 00:29) Hives gluten [Gluten] Allergy (Severe, Verified 04/11/16 00:29) Diarrhea hydrocodone [Hydrocodone] Allergy (Severe, Verified 04/11/16 00:29) Hives ibuprofen Allergy (Severe, Verified 04/11/16 00:29) Hives iodine [Iodine] Allergy (Severe, Verified 04/11/16 00:29) Anaphylaxis latex [Latex] Allergy (Severe, Verified 11/29/18 08:34) Anaphylaxis levofloxacin [From Levaquin] Allergy (Severe, Verified 11/29/18 08:34) Hives meperidine HCl [From Demerol] Allergy (Severe, Verified 11/29/18 08:34) Hives methylprednisolone sodium succinate [From Solu-Medrol (PF)] Allergy (Severe, Verified 11/29/18 08:34) Hives morphine [Morphine] Allergy (Severe, Verified 11/29/18 08:34) Hives nitrofurantoin [From Macrobid] Allergy (Severe, Verified 11/29/18 08:34) Hives ondansetron HCl [From Zofran] Allergy (Severe, Verified 11/29/18 08:34) Anaphylaxis Opioids-Meperidine and Related [Opioids-Meperidine & Related] Allergy (Severe, Verified 11/29/18 08:34) Hives oxycodone [Oxycodone] Allergy (Severe, Verified 11/29/18 08:34) Hives promethazine HCl [From Phenergan] Allergy (Severe, Verified 11/29/18 08:34) paralysis Shellfish * [Shellfish] Allergy (Severe, Verified 11/29/18 08:34) Anaphylaxis Sulfa (Sulfonamide Antibiotics) Allergy (Severe, Verified 11/29/18 08:34) Anaphylaxis tetracycline [Tetracycline] Allergy (Severe, Verified 11/29/18 08:34) Hives vancomycin [Vancomycin] Allergy (Severe, Verified 11/29/18 08:34) Hives ceftriaxone [From Rocephin] Allergy (Verified 11/29/18 08:35) hydromorphone HCl [From Dilaudid] Adverse Reaction (Severe, Verified 11/29/18 08:34) Hallucinations Cats Allergy (Severe, Uncoded 11/29/18 08:34) Anaphylaxis Dogs Allergy (Severe, Uncoded 11/29/18 08:34) Hives gentamicin Allergy (Uncoded 11/29/18 08:35) Home Medications: HCTZ. lexapro. melatonin Past Medical History - Past Medical History Cardiac Medical History: Reports: Hx Hypercholesterolemia Denies: Hx Congestive Heart Failure, Hx Coronary Artery Disease, Hx Heart Attack, Hx Hypertension Pulmonary Medical History: Reports: Hx Asthma, Hx Pneumonia Denies: Hx Bronchitis, Hx COPD, Hx Tuberculosis Neurological Medical History: Denies: Hx Cerebrovascular Accident, Hx Seizures, Hx Parkinson's Disease Renal/ Medical History: Reports: Hx Kidney Stones, Hx Ovarian Cysts. Denies: Hx End Stage Renal Disease, Hx Peritoneal Dialysis GI Medical History: Reports: Hx Hiatal Hernia, Hx Ulcer. 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 hernia repairs with mesh, Hx Urinary Tract Surgery - Pabladder removal, Niecy pouch, suprapubic catheter for her [place] pouch. Denies: Hx Mastectomy, Hx Open Heart Surgery, Hx Pacemaker - Immunizations Immunizations up to date: Yes Hx Diphtheria, Pertussis, Tetanus Vaccination: Yes Physical Exam - Vital signs Vitals: Temp Pulse BP Pulse Ox 97.9 F 56 L 127/73 H 100 01/12/19 12:20 01/12/19 12:20 01/12/19 12:20 01/12/19 12:20 Course - Vital Signs Vital signs: Temp Pulse Resp BP Pulse Ox 97.9 F 56 L 127/73 H 100 01/12/19 12:20 01/12/19 12:20 01/12/19 12:20 01/12/19 12:20 Doctor's Discharge - Discharge Referrals: DAV PENA MD [Primary Care Provider] - Follow up as needed
--- NOTE | 2019-01-12 12:51 | ER Document Report ---
ED General - General Chief Complaint: Chest Pain Stated Complaint: CHEST PAIN,DIZZY Time Seen by Provider: 01/12/19 12:24 Primary Care Provider: DAV PENA MD [Primary Care Provider] - Follow up as needed Notes: RME NOTE: Patient is a 48-year-old female with history of Marfan syndrome, pulmonary edema, permanent indwelling suprapubic catheter status post bladder removal who presents complaining of chest pain that woke her from sleep this morning it is in her midsternal area. Patient states that when she stands the pain worsens and she will become dizzy. Patient states that she had EMS come and performed an EKG which was unremarkable, but patient declined transport and went to her family doctor, Dr. Pena. They performed another EKG at that point and they noted a change from baseline and sent her here for evaluation. No associated diaphoresis or shortness of breath. On a side note, patient states that she did hit her knee against a curb 2 days ago and has had bruising to the knee anteriorly. No fever, abdominal pain, nausea/vomiting. No history of DVT, PE, smoking, hormone use, CAD. MY HPI: Patient voices initially she feels as though the pressure in her chest has subsided. [place] through visit she did state that the patient was burning in nature. Patient voices she also has some pain bilateral shoulder blades. Patient's denying any ripping, tearing feeling from her chest into her back. Patient's denying that the pain is reproducible. She is denying any abdominal pain. She is denying any malodors to her urine or redness around her right nephrostomy tube. Patient's denying smoking history. She is denying hypertension, hyperlipidemia, diabetes. She is unsure of any sort of injury, trauma.'s denying any twisting or lifting motions. States she is very concerned based on her history of Marfan's and her sister had extensive aortic surgery with repair. TRAVEL OUTSIDE OF THE [place] IN LAST 30 DAYS: No - Related Data Allergies/Adverse Reactions: acetaminophen [From Vicodin] Allergy (Severe, Verified 01/12/19 13:37) Hives cephalexin monohydrate [From Keflex] Allergy (Severe, Verified 01/12/19 13:37) Hives ciprofloxacin [From Cipro] Allergy (Severe, Verified 01/12/19 13:37) Hives clarithromycin [From Biaxin] Allergy (Severe, Verified 01/12/19 13:37) Hives diphenhydramine [From Benadryl] Allergy (Severe, Verified 01/12/19 13:37) Hives diphenhydramine HCl [From Benadryl] Allergy (Severe, Verified 01/12/19 13:37) Hives doxycycline [Doxycycline] Allergy (Severe, Verified 01/12/19 13:37) Hives gentamicin [Gentamicin] Allergy (Severe, Verified 01/12/19 13:37) Hives gluten [Gluten] Allergy (Severe, Verified 01/12/19 13:37) Diarrhea hydrocodone [Hydrocodone] Allergy (Severe, Verified 01/12/19 13:37) Hives ibuprofen Allergy (Severe, Verified 01/12/19 13:37) Hives iodine [Iodine] Allergy (Severe, Verified 01/12/19 13:37) Anaphylaxis latex [Latex] Allergy (Severe, Verified 01/12/19 13:37) Anaphylaxis levofloxacin [From Levaquin] Allergy (Severe, Verified 01/12/19 13:37) Hives meperidine HCl [From Demerol] Allergy (Severe, Verified 01/12/19 13:37) Hives methylprednisolone sodium succinate [From Solu-Medrol (PF)] Allergy (Severe, Verified 01/12/19 13:37) Hives morphine [Morphine] Allergy (Severe, Verified 01/12/19 13:37) Hives nitrofurantoin [From Macrobid] Allergy (Severe, Verified 01/12/19 13:37) Hives ondansetron HCl [From Zofran] Allergy (Severe, Verified 01/12/19 13:37) Anaphylaxis Opioids-Meperidine and Related [Opioids-Meperidine & Related] Allergy (Severe, Verified 01/12/19 13:37) Hives oxycodone [Oxycodone] Allergy (Severe, Verified 01/12/19 13:37) Hives promethazine HCl [From Phenergan] Allergy (Severe, Verified 01/12/19 13:37) paralysis Shellfish * [Shellfish] Allergy (Severe, Verified 01/12/19 13:37) Anaphylaxis Sulfa (Sulfonamide Antibiotics) Allergy (Severe, Verified 01/12/19 13:37) Anaphylaxis tetracycline [Tetracycline] Allergy (Severe, Verified 01/12/19 13:37) Hives vancomycin [Vancomycin] Allergy (Severe, Verified 01/12/19 13:37) Hives ceftriaxone [From Rocephin] Allergy (Verified 01/12/19 13:37) hydromorphone HCl [From Dilaudid] Adverse Reaction (Severe, Verified 01/12/19 13:37) Hallucinations Cats Allergy (Severe, Uncoded 01/12/19 13:37) Anaphylaxis Dogs Allergy (Severe, Uncoded 01/12/19 13:37) Hives gentamicin Allergy (Uncoded 01/12/19 13:37) Home Medications: HCTZ. lexapro. melatonin Past Medical History - General Information source: Patient, DrLoretta Office - Social History Smoking Status: Never Smoker Family History: Reviewed & Not Pertinent, CVA, Malignancy, Thyroid Disfunction Patient has suicidal ideation: No Patient has homicidal ideation: No - Past Medical History Cardiac Medical History: Reports: Hx Hypercholesterolemia Denies: Hx Congestive Heart Failure, Hx Coronary Artery Disease, Hx Heart Attack, Hx Hypertension Pulmonary Medical History: Reports: Hx Asthma, Hx Pneumonia Denies: Hx Bronchitis, Hx COPD, Hx Tuberculosis Neurological Medical History: Denies: Hx Cerebrovascular Accident, Hx Seizures, Hx Parkinson's Disease Renal/ Medical History: Reports: Hx Kidney Stones, Hx Ovarian Cysts. Denies: Hx End Stage Renal Disease, Hx Peritoneal Dialysis GI Medical History: Reports: Hx Hiatal Hernia, Hx Ulcer. 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 hernia repairs with mesh, Hx Urinary Tract Surgery - Pabladder removal, [place] pouch, suprapubic catheter for her [place] pouch. Denies: Hx Mastectomy, Hx Open Heart Surgery, Hx Pacemaker - Immunizations Immunizations up to date: Yes Hx Diphtheria, Pertussis, Tetanus Vaccination: Yes Hx Pneumococcal Vaccination: 10/29/14 Review of Systems - Review of Systems Constitutional: denies: Fever EENT: No symptoms reported Cardiovascular: See HPI Respiratory: See HPI Gastrointestinal: See HPI Genitourinary: See HPI Female Genitourinary: No symptoms reported Musculoskeletal: See HPI Skin: No symptoms reported Hematologic/Lymphatic: No symptoms reported Neurological/Psychological: No symptoms reported Physical Exam - Vital signs Vitals: Temp Pulse BP Pulse Ox 97.9 F 56 L 127/73 H 100 01/12/19 12:20 01/12/19 12:20 01/12/19 12:20 01/12/19 12:20 - Notes Notes: GENERAL: Alert, interacts well. No acute distress. HEAD: Normocephalic, atraumatic. EYES: Pupils equal, round, and reactive to light. Extraocular movements intact. ENT: Oral mucosa moist, tongue midline. NECK: Full range of motion. Supple. Trachea midline. LUNGS: Clear to auscultation bilaterally, no wheezes, rales, or rhonchi. No respiratory distress. HEART: Regular rate and rhythm. No murmur Chest: No crepitus felt, no erythema or ecchymosis noted anterior, posterior chest wall. ABDOMEN: Soft, non-tender. Right nephrostomy tube in place, no erythema or pain surrounding. Non-distended. Bowel sounds present in all 4 quadrants. EXTREMITIES: Moves all 4 extremities spontaneously. No edema, normal radial and dorsalis pedis pulses bilaterally. No cyanosis. Full range of motion bilateral knees, slight ecchymosis noted anterior right knee. BACK: no cervical, thoracic, lumbar midline tenderness. No saddle anesthesia, normal distal neurovascular exam. NEUROLOGICAL: Alert and oriented x3. Normal speech. cranial nerves II through XII grossly intact. PSYCH: Normal affect, normal mood. SKIN: Warm, dry, normal turgor. No rashes or lesions noted. Course - Re-evaluation Re-evalutation: 01/12/19 16:35 I spoke with patient's primary care provider Dr. Pena on the phone. He is comfortable that if the patient has a delta negative troponin and then she can follow-up in his office tomorrow. He was more concerned for an aortic aneurysm based on patient's history of Marfan's. CT imaging shows no signs of aneurysm. Dr. Pena also states he does not typically treat patient's urinary tract infection unless she has a fever, leukocytosis, culture grows back positive. Discussed he will follow-up with her in the office tomorrow and he recommends not placing the patient on antibiotics at this time. 01/12/19 18:06 Laboratory 01/12/19 01/12/19 01/12/19 12:50 12:50 12:50 WBC 3.7 L RBC 3.92 Hgb 13.0 Hct 37.0 MCV 94 MCH 33.1 MCHC 35.1 RDW 13.6 Plt Count 67 L Lymph % (Auto) 13.4 [place] % (Auto) 17.6 H Eos % (Auto) 6.4 H Baso % (Auto) 0.7 Absolute Neuts (auto) 2.3 Absolute Lymphs (auto) 0.5 Absolute Monos (auto) 0.6 Absolute Eos (auto) 0.2 Absolute Basos (auto) 0.0 Seg Neutrophils % 61.9 Sodium 139.3 Potassium 3.8 Chloride 106 Carbon Dioxide 26 Anion Gap 7 BUN 11 Creatinine 0.82 Est GFR ( Amer) > 60 Est GFR (MDRD) Non-Af > 60 Glucose 84 Calcium 9.0 Magnesium 1.9 Total Bilirubin 1.0 Direct Bilirubin 0.2 Neonat Total Bilirubin Not Reportable Neonat Direct Bilirubin Not Reportable Neonat Indirect Bili Not Reportable AST 22 ALT 13 Alkaline Phosphatase 71 Troponin I < 0.012 Total Protein 7.1 Albumin 3.7 Serum HCG, Qual Urine Color Urine Appearance Urine pH Ur Specific [place] Urine Protein Urine Glucose (UA) Urine Ketones Urine Blood Urine Nitrite Urine Bilirubin Urine Urobilinogen Ur Leukocyte Esterase Urine WBC (Auto) Urine RBC (Auto) U Hyaline Cast (Auto) Urine Bacteria (Auto) U Non-Squamous Epis Auto Triple Phos Cryst (Auto) Amorphous Sediment Auto Urine Mucus (Auto) Urine Ascorbic Acid 01/12/19 01/12/19 01/12/19 12:50 13:25 16:32 WBC RBC Hgb Hct MCV MCH MCHC RDW Plt Count Lymph % (Auto) [place] % (Auto) Eos % (Auto) Baso % (Auto) Absolute Neuts (auto) Absolute Lymphs (auto) Absolute Monos (auto) Absolute Eos (auto) Absolute Basos (auto) Seg Neutrophils % Sodium Potassium Chloride Carbon Dioxide Anion Gap BUN Creatinine Est GFR ( Amer) Est GFR (MDRD) Non-Af Glucose Calcium Magnesium Total Bilirubin Direct Bilirubin Neonat Total Bilirubin Neonat Direct Bilirubin Neonat Indirect Bili AST ALT Alkaline Phosphatase Troponin I < 0.012 Total Protein Albumin Serum HCG, Qual NEGATIVE Urine Color PINK Urine Appearance CLOUDY Urine pH 9.0 Ur Specific [place] 1.012 Urine Protein >=500 H Urine Glucose (UA) NEGATIVE Urine Ketones NEGATIVE Urine Blood LARGE H Urine Nitrite POSITIVE H Urine Bilirubin NEGATIVE Urine Urobilinogen NEGATIVE Ur Leukocyte Esterase LARGE H Urine WBC (Auto) 132 Urine RBC (Auto) >182 U Hyaline Cast (Auto) 5 Urine Bacteria (Auto) 1+ U Non-Squamous Epis Auto 6 Triple Phos Cryst (Auto) TOO NUMEROUS TO CNT Amorphous Sediment Auto TRACE Urine Mucus (Auto) FEW Urine Ascorbic Acid NEGATIVE Chest X-Ray 01/12/19 12:24 IMPRESSION: NO ACUTE RADIOGRAPHIC FINDING IN THE CHEST. Knee X-Ray 01/12/19 12:24 IMPRESSION: NEGATIVE STUDY OF THE RIGHT KNEE. NO RADIOGRAPHIC EVIDENCE OF ACUTE INJURY. Chest/Abdomen CTA 01/12/19 12:58 IMPRESSION: 1. Examination for pulmonary embolism is somewhat limited by motion artifact. Within this limitation, no evidence of pulmonary embolism through the proximal segmental level. 2. Subtle areas of fibrotic change in the lung bases, for example in the right middle lobe (series 3, image 79). 3. Splenomegaly in the partially included upper abdomen. Patient has had delta negative troponins in the emergency department. Her EKG has remained unchanged, initial EKG shows sinus bradycardia rate of 51, QTc 443, no ST segment elevations or depressions noted is unchanged from previous EKGs. Patient's heart score is a 2 based on age and risk factors. Patient voices she does feel somewhat better after GI cocktail. States she still has intermittent bilateral shoulder blade pain more so when she moves. Discussed with her this may be muscular in nature. Patient voices she is allergic to Motrin, Toradol, aspirin, Tylenol. Patient voices when she is had muscular pain in the past she does sit in a warm bath and not typically helps. I have discussed with her that I spoke with her doctor Dr. Pena. I discussed that he does want to see her in the office tomorrow morning. Patient voices understanding, stable for discharge. - Vital Signs Vital signs: Temp Pulse Resp BP Pulse Ox 97.9 F 56 L 18 129/66 H 98 01/12/19 12:20 01/12/19 12:20 01/12/19 15:22 01/12/19 15:22 01/12/19 15:22 - Laboratory Result Diagrams: 01/12/19 12:50 01/12/19 12:50 Laboratory results interpreted by me: 01/12/19 01/12/19 12:50 13:25 WBC 3.7 L Plt Count 67 L [place] % (Auto) 17.6 H Eos % (Auto) 6.4 H Urine Protein >=500 H Urine Blood LARGE H Urine Nitrite POSITIVE H Ur Leukocyte Esterase LARGE H Discharge - Discharge Clinical Impression: Chest pain Qualifiers: Chest pain type: unspecified Qualified Code(s): R07.9 - Chest pain, unspecified Gastritis Qualifiers: Gastritis type: unspecified gastritis Chronicity: chronic Gastritis bleeding: without bleeding Qualified Code(s): K29.50 - Unspecified chronic gastritis without bleeding Condition: Stable Disposition: HOME, SELF-CARE Instructions: Chest Pain of Unclear Cause ([facility]), Reflux Disease (GERD) ([facility]) Additional Instructions: As we discussed you have been seen and treated in the emergency department for your chest pain. Your CTA shows no signs of an aortic aneurysm. Your lab work also shows no signs of abnormalities with your heart. This could be indigestion related, this could be muscular related. I have spoken to your doctor Dr. Pena. He would like to see you in his office tomorrow. Please make sure you follow- up with him tomorrow. Please immediately return to the emergency department for any concerns. Referrals: DAV PENA MD [Primary Care Provider] - Follow up as needed
--- NOTE | 2019-01-12 13:18 | RADIOLOGY REPORT (SQ) ---
EXAM DESCRIPTION: CHEST 2 VIEWS COMPLETED DATE/TIME: 01/12/2019 12:46 pm REASON FOR STUDY: CP COMPARISON: 01/22/2015. EXAM PARAMETERS: NUMBER OF VIEWS: two views TECHNIQUE: Digital Frontal and Lateral radiographic views of the chest acquired. RADIATION DOSE: NA LIMITATIONS: none FINDINGS: LUNGS AND PLEURA: No opacities, masses or pneumothorax. No pleural effusion. MEDIASTINUM AND HILAR STRUCTURES: No masses or contour abnormalities. HEART AND VASCULAR STRUCTURES: Heart normal size. No evidence for failure. BONES: No acute findings. HARDWARE: None in the chest. OTHER: No other significant finding. IMPRESSION: NO ACUTE RADIOGRAPHIC FINDING IN THE CHEST. TECHNICAL DOCUMENTATION: JOB ID: [id number] [employer]- All Rights Reserved Reading location - IP/workstation name: [email or web address]
--- NOTE | 2019-01-12 13:19 | RADIOLOGY REPORT (SQ) ---
EXAM DESCRIPTION: KNEE RIGHT 4 VIEWS COMPLETED DATE/TIME: 01/12/2019 12:46 pm REASON FOR STUDY: Rt knee pain COMPARISON: None. NUMBER OF VIEWS: Four views. TECHNIQUE: AP, lateral, and both oblique radiographic images acquired of the right knee. LIMITATIONS: None. FINDINGS: MINERALIZATION: Normal. BONES: No acute fracture or dislocation. No worrisome bone lesions. JOINT: No effusion. SOFT TISSUES: No soft tissue swelling. No radio-opaque foreign body. OTHER: No other significant finding. IMPRESSION: NEGATIVE STUDY OF THE RIGHT KNEE. NO RADIOGRAPHIC EVIDENCE OF ACUTE INJURY. TECHNICAL DOCUMENTATION: JOB ID: [id number] [employer]- All Rights Reserved Reading location - IP/workstation name: [email or web address]
[2019-01-12 13:23] LABS: ABSOLUTE EOSINOPHILS # (AUTO) 0.2 10^3/uL (0.0-0.6); ABSOLUTE LYMPHOCYTES (AUTO) 0.5 10^3/uL (0.5-4.7); ABSOLUTE MONOCYTES (AUTO) 0.6 10^3/uL (0.1-1.4); ABSOLUTE NEUT (AUTO) 2.3 10^3/uL (1.7-8.2); BASOPHILS % (AUTO) 0.7 % (0-2); EOSINOPHILS % (AUTO) 6.4 % (0-6); LYMPHOCYTES % (AUTO) 13.4 % (13-45); MEAN CORPUSCULAR HEMOGLOBIN 33.1 pg (27.0-33.4); MEAN CORPUSCULAR HGB CONC 35.1 g/dL (32.0-36.0); MEAN CORPUSCULAR VOLUME 94 fl (80-97); MONOCYTES % (AUTO) 17.6 % (3-13); RED BLOOD COUNT 3.92 10^6/uL (3.72-5.28); RED CELL DISTRIBUTION WIDTH 13.6 % (11.5-14.0); SEGMENTED NEUTROPHILS % (AUTO) 61.9 % (42-78); TOTAL CELLS COUNTED % (AUTO) 100 %; WHITE BLOOD COUNT 3.7 10^3/uL (4.0-10.5)
[2019-01-12 13:41] LABS: ALBUMIN 3.7 g/dL (3.5-5.0); ALKALINE PHOSPHATASE 71 U/L (38-126); ANION GAP 7 (5-19); ASPARTATE AMINO TRANSFERASE 22 U/L (14-36); BILIRUBIN,DIRECT 0.2 mg/dL (0.0-0.4); BLOOD UREA NITROGEN 11 mg/dL (7-20); CARBON DIOXIDE 26 mmol/L (22-30); CHLORIDE 106 mmol/L (98-107); GLUCOSE 84 mg/dL (75-110); POTASSIUM 3.8 mmol/L (3.6-5.0); TOTAL PROTEIN 7.1 g/dL (6.3-8.2)
[2019-01-12 13:48] LABS: PLATELET COUNT 67 10^3/uL (150-450)
[2019-01-12 13:50] LABS: AMORPHOUS SEDIMENT,URINE TRACE /HPF; APPEARANCE,URINE CLOUDY; BILIRUBIN,URINE NEGATIVE (NEGATIVE); GLUCOSE, URINE NEGATIVE (NEGATIVE); KETONES,URINE NEGATIVE (NEGATIVE); LEUKOCYTE ESTERASE,URINE LARGE (NEGATIVE); NITRITE,URINE POSITIVE (NEGATIVE); PROTEIN,URINE >=500 mg/dL (NEGATIVE); TRIPLE PHOSPHATE CRYSTAL,URINE TOO NUMEROUS TO CNT /HPF; URINE SPECIFIC GRAVITY 1.012; UROBILINOGEN,URINE NEGATIVE mg/dL (<2.0)
[2019-01-12 13:52] LABS: COLOR,URINE PINK
--- NOTE | 2019-01-12 15:31 | RADIOLOGY REPORT (SQ) ---
EXAM DESCRIPTION: CTA CHEST COMPLETED DATE/TIME: 01/12/2019 3:19 pm REASON FOR STUDY: h/o marfans CP COMPARISON: CT abdomen pelvis, 11/29/2018, CT chest, 09/08/2013 TECHNIQUE: CT scan of the chest performed using helical scanning technique with dynamic intravenous contrast injection. Images reviewed with lung, soft tissue and bone windows. Reconstructed coronal and sagittal MPR images reviewed. Additional 3 dimensional post-processing performed to develop Maximal Intensity Projection images (DE P). All images stored on PACS. All CT scanners at this facility use dose modulation, iterative reconstruction, and/or weight based d osing when appropriate to reduce radiation dose to as low as reasonably achievable (ALARA). [facility]: Dose Right [facility]: CareDose [facility]: Dose Right [facility]: Teradose 4D [facility]: Trust Mico CONTRAST TYPE AND DOSE: contrast/concentration: Isovue 350.00 mg/ml; Total Contrast Delivered: 73.0 ml; Total Saline Delivered: 70.0 ml Contrast bolus optimized for the pulmonary arteries. Not diagnostic for the aorta. RENAL FUNCTION: None required. The patient is less than 50 years old. RADIATION DOSE: CT Rad equipment meets quality standard of care and radiation dose reduction techniq ues were employed. CTDIvol: 14.9 - 30.0 mGy. DLP: 1125 mGy-cm. . LIMITATIONS: Breath motion artifact. FINDINGS: LUNGS AND PLEURA: Subtle areas of fibrotic change in the lung bases, for example in the ri ght middle lobe (series 3, image 79). No masses, infiltrates, or pneumothorax. No pleural effusions or pleural calcifications. AORTA AND GREAT VESSELS: No aneurysm. Contrast bolus not optimized for the aorta. HEART: No pericardial effusion. No significant coronary artery calcifications. PULMONARY ARTERIES: Examination for pulmonary embolism is somewhat limited by motion artifact. Withi n this limitation, no evidence of pulmonary embolism through the proximal segmental level. HILAR AND MEDIASTINAL STRUCTURES: No identified masses or abnormal nodes. HARDWARE: None in the chest. UPPER ABDOMEN: Splenomegaly. THYROID AND OTHER SOFT TISSUES: No masses. No adenopathy. BONES: No acute or significant finding. 3D MIPS: Confirm above findings. OTHER: No other significant finding. IMPRESSION: 1. Examination for pulmonary embolism is somewhat limited by motion artifact. Within th is limitation, no evidence of pulmonary embolism through the proximal segmental level. 2. Subtle areas of fibrotic change in the lung bases, for example in the right middle lobe (series 3, image 79). 3. Splenomegaly in the partially included upper abdomen. COMMENT: Quality ID # [id number]: Final reports with documentation of one or more dose reduction techniques (e.g., Automated exposure control, adjustment of the mA and/or kV according to patient size, use of iterative reconstruction technique) TECHNICAL DOCUMENTATION: JOB ID: [id number] [employer]- All Rights Reserved Reading location - IP/workstation name: [email or web address]
[2019-01-12] MEDS ORDERED: MAG HYDROX/AL HYDROX/SIMETH SUSP 30 ML UDCUP PO ONE (16:29)
[2019-01-12] MEDS ORDERED: LIDOCAINE 2% VISCOUS SOLN 20 ML UDCUP PO ONE (16:29)
[2019-01-12] MEDS ORDERED: METOCLOPRAMIDE HCL ORAL SOLN 10 MG/10 ML UDCUP PO ONE (16:29)
--- NOTE | 2019-01-12 18:12 | EKG REPORT ---
SEVERITY:- ABNORMAL ECG - SINUS BRADYCARDIA NONSPECIFIC INTRAVENTRICULAR CONDUCTION DELAY : Confirmed by: Faheem Cisneros MD 12-Jan-2019 18:11:58
--- NOTE | 2019-01-12 18:13 | EKG REPORT ---
SEVERITY:- BORDERLINE ECG - SINUS RHYTHM BORDERLINE T ABNORMALITIES, ANTERIOR LEADS : Confirmed by: Faheem Cisneros MD 12-Jan-2019 18:12:37
[2019-01-12 18:34] VITALS: BP 126/75
== END 2019-01-12 18:31 | disposition home or self-care (01) ==
LOC: ER 12:06
DX: R07.89 Other chest pain (principal); K29.50 Unspecified chronic gastritis without bleeding; M89.8X1 Other specified disorders of bone, shoulder; R16.1 Splenomegaly, not elsewhere classified; R00.1 Bradycardia, unspecified; F32.9 Major depressive disorder, single episode, unspecified; Z79.899 Other long term (current) drug therapy; Z93.6 Other artificial openings of urinary tract status; Z88.8 Allergy status to other drugs, medicaments and biological substances; Z88.1 Allergy status to other antibiotic agents; Z88.5 Allergy status to narcotic agent; Z88.6 Allergy status to analgesic agent; Z91.040 Latex allergy status; Z87.892 Personal history of anaphylaxis; Z91.013 Allergy to seafood; Z88.2 Allergy status to sulfonamides; Z91.048 Other nonmedicinal substance allergy status
CPT/HCPCS: 93005; 36415; 83735; 84703; 85025; 80053; 81001; 84484; 71046; 73564; 71275; 93010; J3490; A9270 ×2; 87086; 87088; 99285

== ENCOUNTER → 2019-02-09 | Outpatient (CLI) | payer MEDICARE, OTHER ==
[~2019-02-09] MED LIST changes: -ERTAPENEM SODIUM 1 GM in NORMAL SALINE 50 ML IV PRN; +FUROSEMIDE INJ/PF 40 MG/4 ML SDV ONE
--- NOTE | 2019-02-09 16:18 | RADIOLOGY REPORT (SQ) ---
EXAM DESCRIPTION: NM RENAL WITH LASIX COMPLETED DATE/TIME: 02/09/2019 3:59 pm REASON FOR STUDY: (N13.4)HYDROURETER;(Z93.6)OTHER ARTIFICIAL OPENINGS OF URINARY TRACT STATUS N13.4 HYDROURETER Z93.6 OTHER ARTIFICIAL OPENINGS OF URINARY TRACT STATUS COMPARISON: CT angio chest 01/12/2019 CT abdomen pelvis 11/29/2018, 04/28/2017, 01/29/2016 RADIONUCLIDE AND DOSE: 5.1 millicuries Tc-99m MAG 3 The route of agent administration: Intravenous ADDITIONAL DRUGS AND DOSES: Lasix 20 mg. TECHNIQUE: Following administration of the radionuclide, flow images of the kidneys were acquired fo llowed by sequential imaging for 60 minutes. Intravenous Lasix was given at the midpoint of the study . Time activity curves were generated. LIMITATIONS: None. FINDINGS: ACTIVITY LEFT KIDNEY: 80 %. ACTIVITY RIGHT KIDNEY: 20 %. There is prompt uptake of activity in the kidneys bilaterally simultaneous with passage of the aortic bolus. Blood flow imaging demonstrates decreased perfusion on the right side as compared to the lef t. On the left side, normal peak timed at maximal activity, normal T1/2, normal washout after Lasix. Th e left peak time to maximal activity 4.6 minutes, T1/2 is 33 minutes. On the right side, there is progressive accumulation of activity over the renal pelvis and proximal u reter without significant washout on the post Lasix images. Template maximal activity right kidney 2 9 minutes. T1/2 was not calculated, progressive accumulation of activity over the right renal pelvis , calices and upper ureter throughout the study. IMPRESSION: NORMAL LEFT LASIX RENOGRAM. SPLIT RENAL FUNCTION 20% RIGHT KIDNEY. RIGHT-SIDED HYDRONEPHROSIS AND HYDROURETER IS PRESENT WITH OR OGRESSIVE ACCUMULATION OF ACTIVITY OVER THE RIGHT KIDNEY THROUGHOUT THE STUDY, NO SIGNIFICANT WASHOUT POST LASIX. TECHNICAL DOCUMENTATION: JOB ID: [id number] [employer]- All Rights Reserved Reading location - IP/workstation name: [email or web address]
== END ==
LOC: RAD 13:57
PROVIDERS: ATTEND Obstetrics & Gynecology
DX: N13.4 Hydroureter (principal); Z93.6 Other artificial openings of urinary tract status
CPT/HCPCS: 78708; A9562; J1940

== ENCOUNTER → 2019-05-03 | Outpatient (CLI) | payer MEDICARE, OTHER ==
[2019-05-03 13:48] LABS: ALBUMIN 3.9 g/dL (3.5-5.0); ALKALINE PHOSPHATASE 70 U/L (38-126); ANION GAP 9 (5-19); ASPARTATE AMINO TRANSFERASE 29 U/L (14-36); BILIRUBIN,DIRECT 0.2 mg/dL (0.0-0.4); BILIRUBIN,TOTAL 0.9 mg/dL (0.2-1.3); BLOOD UREA NITROGEN 13 mg/dL (7-20); CALCIUM 8.8 mg/dL (8.4-10.2); CARBON DIOXIDE 22 mmol/L (22-30); CHLORIDE 107 mmol/L (98-107); GLUCOSE 86 mg/dL (75-110); POTASSIUM 3.9 mmol/L (3.6-5.0); TOTAL PROTEIN 7.7 g/dL (6.3-8.2)
== END ==
LOC: OD 12:57
PROVIDERS: ATTEND Obstetrics & Gynecology
DX: R53.83 Other fatigue (principal); R07.9 Chest pain, unspecified
CPT/HCPCS: 36415; 80053; 84484